=== PATIENT | male | born 1965 | race Caucasian/White ===

== ENCOUNTER 2017-08-20 19:30 | Emergency (ER) | payer OTHER ==
[2017-08-20 19:39] VITALS: BP 113/84; PULSE 80; RESP 20; TEMP 98.8; O2SAT 97
[2017-08-20] MEDS ORDERED: CLON.5 PO (20:37)
[2017-08-20] MEDS ORDERED: OMEP20TA93 PO (20:37)
[2017-08-20] MEDS ORDERED: LISI-515 PO (20:37)
[2017-08-20] MEDS ORDERED: BLOOD PRESSURE MED PO (20:37)
--- NOTE | 2017-08-20 20:37 | PD ---
HPI Chief Complaint: Psychiatric Symptoms Time Seen by Provider: 20:22 Travel History International Travel<30 days: No Contact w/Intl Traveler<30days: No Traveled to known affect area: No History of Present Illness HPI 52-year-old white male presents to emergency department by EMS for evaluation of alcohol abuse. The patient states that he is concerned that he's killing himself with alcohol. He was just treated 3 weeks ago for acute renal failure and was sent to the [facility] detox facility. He was in the facility for one week and was discharged home. [place] 4 days later. He's been consuming a large amount of vodka. He states he does not want to hurt himself or hurt anyone. He is tired of being an alcoholic. He denies any drugs. No tobacco. He denies any toxic ingestions. He states that is been merely laying in bed drinking large amounts of alcohol. Patient admits to being depressed. History of depression, hypertension, GERD and most recently the acute kidney injury. [facility] Past Medical History Narrative Medical Depression, chronic alcohol abuse, hypertension, GERD, history of acute renal failure Tetanus Vaccination: < 5 Years Past Surgical History Surgical History: No Previous Surgery Social History Alcohol Use: Yes Tobacco Use: No Substance Use: No Allergies-Medications (Allergen,Severity, Reaction): Coded Allergies: [facility] Dust (Verified Allergy, Unknown, 08/20/17) Reported Meds & Prescriptions Reported Meds & Active Scripts Active Reported [Blood Pressure Med] 1 Mg PO DAILY Klonopin (Clonazepam) 0.5 Mg Tab 0.5 Mg PO BID Omeprazole 20 Mg Tab 20 Mg PO DAILY Lisinopril 20 Mg Tab 20 Mg PO DAILY Review of Systems General / Constitutional: No: Fever, Chills Eyes: No: Visual changes HENT: No: Headaches, Sore Throat Cardiovascular: No: Chest Pain or Discomfort, Palpitations Respiratory: No: Cough, Shortness of Breath Gastrointestinal: No: Nausea, Vomiting, Abdominal Pain Genitourinary: No: Dysuria Musculoskeletal: No: Pain Skin: No Rash Neurologic: No: Weakness Psychiatric: Positive: Depression, Mood Disorder, Substance Abuse, No: Suicidal Ideations, Disorder of Thought, Homicidal Ideation Endocrine: No: Polydipsia Hematologic/Lymphatic: No: Easy Bruising Physical Exam Narrative GENERAL: Well-nourished, well-developed patient. Patient smells of EtOH and appears intoxicated. SKIN: Warm and dry. HEAD: Normocephalic and atraumatic. EYES: No scleral icterus. No injection or drainage. ENT: No nasal drainage noted. Mucous membranes pink. Airway patent. NECK: Supple, trachea midline. Moves head freely without obvious discomfort. CARDIOVASCULAR: Regular rate and rhythm without murmurs, gallops, or rubs. RESPIRATORY: Breath sounds equal bilaterally. No accessory muscle use. GASTROINTESTINAL: Abdomen soft, non-tender, nondistended. EXTREMITIES: No cyanosis or edema. BACK: Nontender without obvious deformity. No CVA tenderness. NEURO: Patient is alert and oriented. no sensorimotor deficits. Nonfocal. Normal speech. PSYCH: No delusions. No auditory or visual hallucinations. Data Data Last Documented VS Vital Signs Date Time Temp Pulse Resp B/P (MAP) Pulse Ox O2 Delivery O2 Flow Rate FiO2 08/20/17 20:28 86 17 08/20/17 19:39 98.8 113/84 (94) 97 Room Air Orders Orders Complete Blood Count With Diff (08/20/17 20:31) Comprehensive Metabolic Panel (08/20/17 20:31) Iv Access Insert/Monitor (08/20/17 20:31) Psych Screen (08/20/17 20:31) Drug Screen, Random Urine (08/20/17 20:31) Alcohol (Ethanol) (08/20/17 20:31) Salicylates (Aspirin) (08/20/17 20:31) Tylenol (Acetaminophen) (08/20/17 20:31) Sodium Chlor 0.9% 1000 Ml Inj (Ns 1000 M (08/20/17 20:45) Labs Laboratory Tests Test 08/20/17 20:40 White Blood Count 8.1 TH/MM3 Red Blood Count 5.28 MIL/MM3 Hemoglobin 16.6 GM/DL Hematocrit 48.2 % Mean Corpuscular Volume 91.3 FL Mean Corpuscular Hemoglobin 31.4 PG Mean Corpuscular Hemoglobin Concent 34.5 % Red Cell Distribution Width 14.5 % Platelet Count 275 TH/MM3 Mean Platelet Volume 7.0 FL Neutrophils (%) (Auto) 74.7 % Lymphocytes (%) (Auto) 16.0 % Monocytes (%) (Auto) 8.2 % Eosinophils (%) (Auto) 0.4 % Basophils (%) (Auto) 0.7 % Neutrophils # (Auto) 6.1 TH/MM3 Lymphocytes # (Auto) 1.3 TH/MM3 Monocytes # (Auto) 0.7 TH/MM3 Eosinophils # (Auto) 0.0 TH/MM3 Basophils # (Auto) 0.1 TH/MM3 CBC Comment DIFF FINAL Differential Comment Blood Urea Nitrogen 15 MG/DL Creatinine 1.47 MG/DL Random Glucose 97 MG/DL Total Protein 8.6 GM/DL Albumin 4.1 GM/DL Calcium Level 8.6 MG/DL Alkaline Phosphatase 78 U/L Aspartate Amino Transf (AST/SGOT) 164 U/L Alanine Aminotransferase (ALT/SGPT) 176 U/L Total Bilirubin 1.2 MG/DL Sodium Level 140 MEQ/L Potassium Level 4.2 MEQ/L Chloride Level 104 MEQ/L Carbon Dioxide Level 24.6 MEQ/L Anion Gap 11 MEQ/L Estimat Glomerular Filtration Rate 50 ML/MIN Salicylates Level LESS THAN 1.7 MG/DL Acetaminophen Level LESS THAN 2.0 MCG/ML Ethyl Alcohol Level 273 MG/DL MDM Medical Decision Making Medical Screen Exam Complete: Yes Emergency Medical Condition: Yes Medical Record Reviewed: Yes Interpretation(s) Laboratory Tests Test 08/20/17 20:40 White Blood Count 8.1 TH/MM3 Red Blood Count 5.28 MIL/MM3 Hemoglobin 16.6 GM/DL Hematocrit 48.2 % Mean Corpuscular Volume 91.3 FL Mean Corpuscular Hemoglobin 31.4 PG Mean Corpuscular Hemoglobin Concent 34.5 % Red Cell Distribution Width 14.5 % Platelet Count 275 TH/MM3 Mean Platelet Volume 7.0 FL Neutrophils (%) (Auto) 74.7 % Lymphocytes (%) (Auto) 16.0 % Monocytes (%) (Auto) 8.2 % Eosinophils (%) (Auto) 0.4 % Basophils (%) (Auto) 0.7 % Neutrophils # (Auto) 6.1 TH/MM3 Lymphocytes # (Auto) 1.3 TH/MM3 Monocytes # (Auto) 0.7 TH/MM3 Eosinophils # (Auto) 0.0 TH/MM3 Basophils # (Auto) 0.1 TH/MM3 CBC Comment DIFF FINAL Differential Comment Blood Urea Nitrogen 15 MG/DL Creatinine 1.47 MG/DL Random Glucose 97 MG/DL Total Protein 8.6 GM/DL Albumin 4.1 GM/DL Calcium Level 8.6 MG/DL Alkaline Phosphatase 78 U/L Aspartate Amino Transf (AST/SGOT) 164 U/L Alanine Aminotransferase (ALT/SGPT) 176 U/L Total Bilirubin 1.2 MG/DL Sodium Level 140 MEQ/L Potassium Level 4.2 MEQ/L Chloride Level 104 MEQ/L Carbon Dioxide Level 24.6 MEQ/L Anion Gap 11 MEQ/L Estimat Glomerular Filtration Rate 50 ML/MIN Salicylates Level LESS THAN 1.7 MG/DL Acetaminophen Level LESS THAN 2.0 MCG/ML Ethyl Alcohol Level 273 MG/DL Differential Diagnosis Differential diagnoses: Alcohol intoxication, substance abuse, electrolyte abnormality, malingering Narrative Course IV access is obtained. Routine laboratory tests sent for analysis. Patient given liter bolus of normal saline. Condition: Stable Prudencio Oviedo Aug 20, 2017 20:37
[2017-08-20] MEDS ORDERED: SODIUM CHLOR 0.9% 1000 ML INJ 1,000 ML IV ONE (20:45)
[2017-08-20 21:16] LABS: AUTOMATED NEUTROPHIL # 6.1 TH/MM3 (1.8-7.7); BASOPHIL # 0.1 TH/MM3 (0-0.2); BASOPHIL % 0.7 % (0.0-2.0); EOSINOPHIL % 0.4 % (0.0-4.0); HEMATOCRIT 48.2 % (39.0-51.0); HEMO FLAGS DIFF FINAL; LYMPHOCYTE # 1.3 TH/MM3 (1.0-4.8); MEAN CELL VOLUME 91.3 FL (80.0-100.0); MEAN CORPUSCULAR HEMOGLOBIN 31.4 PG (27.0-34.0); MEAN CORPUSCULAR HGB CONC 34.5 % (32.0-36.0); MONO % 8.2 % (0.0-8.0); NEUT % 74.7 % (16.0-70.0); PLATELET COUNT 275 TH/MM3 (150-450); RED BLOOD COUNT 5.28 MIL/MM3 (4.50-5.90); RED CELL DISTRIBUTION WIDTH 14.5 % (11.6-17.2); WHITE BLOOD COUNT 8.1 TH/MM3 (4.0-11.0)
[2017-08-20 21:42] LABS: ALT (GPT) 176 U/L (12-78); ANION GAP 11 MEQ/L (5-15); AST (GOT) 164 U/L (15-37); BICARBONATE 24.6 MEQ/L (21.0-32.0); BLOOD UREA NITROGEN 15 MG/DL (7-18); CHLORIDE 104 MEQ/L (98-107); GLOMERULAR FILTRATION RATE 50 ML/MIN (>89); POTASSIUM 4.2 MEQ/L (3.5-5.1); SODIUM (NA) 140 MEQ/L (136-145)
[2017-08-20 21:48] LABS: ALCOHOL 273 MG/DL (0-5); ALKALINE PHOSPHATASE 78 U/L (45-117); TOTAL BILIRUBIN ADULT 1.2 MG/DL (0.2-1.0)
[2017-08-20 21:49] LABS: ACETAMINOPHEN LESS THAN 2.0 MCG/ML (10.0-30.0)
[2017-08-21] MEDS: chlordiazePOXIDE 25 MG CAP PO PRN ×2 (00:11→05:24)
[2017-08-21 02:10] VITALS: BP 129/76; PULSE 75; RESP 18; TEMP 98.6; O2SAT 95
[2017-08-21 06:20] VITALS: BP 131/83; PULSE 80; RESP 16; TEMP 99.1; O2SAT 95
[2017-08-21] MEDS ORDERED: LORazepam 2 MG/ML VIAL IV PUSH PRN ×4 (08:00)
[2017-08-21] MEDS ORDERED: LORazepam 1 MG TAB PO PRN (08:00)
[2017-08-21] MEDS ORDERED: ONDANSETRON ODT 4 MG TAB PO ONE (08:00)
[2017-08-21] MEDS ORDERED: FLUMAZENIL 0.5 MG/5 ML VIAL IV PUSH PRN (08:00)
[2017-08-21] MEDS: LORazepam 2 MG TAB PO PRN ×3 (08:32→16:26)
[2017-08-21 10:30] VITALS: BP 122/79; PULSE 81; RESP 18; TEMP 99.4; O2SAT 95
[2017-08-21 11:55] VITALS: BP 141/87; PULSE 88; RESP 16; TEMP 99.8; O2SAT 94
[2017-08-21] MEDS ORDERED: chlordiazePOXIDE 25 MG CAP PO PRN (12:00)
[2017-08-21] MEDS: LORazepam 2 MG/ML VIAL IM PRN ×2 (12:05→12:23)
--- NOTE | 2017-08-21 12:31 | PD ---
History of Present Illness Chief Complaint: Psychiatric Symptoms Time Seen by Provider: 11:30 Travel History International Travel<30 Days: No Contact w/Intl Traveler<30days: No Known affected area: No Legal Status Legal Status: Voluntary History of Present Illness: History of Present Illness HPI 52-year-old white male presents to the emergency department by EMS for evaluation of alcohol abuse. He reported that he is concerned that his excessive and continued use of alcohol is going to lead to his . Patient has been treated at [facility] detox facility 3 weeks ago and relapsed 4 days after his discharge from there. Patient also reports that he's had multiple inpatient detox admissions over the last several years. At this time the patient is on CIWA protocol due to withdrawal symptoms. He denies any psychiatric symptomatology. There is no psychosis, no ale or hypomania. There is no suicidal or homicidal ideation. Telephone call to his daughter , Antionette at [phone].. Her boyfriend's number is [phone]. She will not be available after tomorrow morning since [place] be [place] sea [place] cruise and asks if needed she can be contacted at that number. She has agreed to come and pick him up and transport him to [place] for possible admission to detox unit there. PFSH Past Medical History Depression: Yes Genitourinary: Yes (ACUTE RENAL FAILURE) Medical other: Yes (DAILY ETOH) Tetanus Vaccination: < 5 Years Past Surgical History Surgical History: No Previous Surgery Psychiatric History Psychiatric History Hx Psychiatric Treatment: HX: ANXIETY History of Inpatient Treatment: No Guns or firearms in home: No Social History male. Lives by himself. Hx Alcohol Use: Yes Hx Tobacco Use: No Hx Substance Use: Yes Substance Use Type: Alcohol Hx of Substance Use Treatment: Yes Family Psychiatric History Negative Allergies-Medications (Allergen,Severity, Reaction): Coded Allergies: [facility] Dust (Verified Allergy, Unknown, 08/20/17) Reported Meds & Prescriptions Reported Meds & Active Scripts Active Reported [Blood Pressure Med] 1 Mg PO DAILY Klonopin (Clonazepam) 0.5 Mg Tab 0.5 Mg PO BID Omeprazole 20 Mg Tab 20 Mg PO DAILY Lisinopril 20 Mg Tab 20 Mg PO DAILY Mental Status Examination Appearance: Disheveled Consciousness: Alert Orientation: x4 Motor Activity: Other (unsteady) Speech: Unremarkable Language: Adequate Fund of Knowledge: Adequate Attention and Concentration: Adequate Memory: Unremarkable Mood: Appropriate Affect: Appropriate Thought Process & Associations: Intact, Logical, Goal directed Thought Content: Appropriate Hallucination Type: None Delusion Type: None Suicidal Ideation: No Suicidal Plan: No Suicidal Intention: No Homicidal Ideation: No Homicidal Plan: No Homicidal Intention: No Insight: Fair Judgment: Adequate MDM Medical Decision Making Medical Record Reviewed: Yes Assessment/Plan 52-year-old male with history of alcohol dependence who presents to the ED wanting to receive detoxification from alcohol. The patient does not present any psychiatric symptomatology. He is not psychotic, not manic, not depressed. The patient with no suicidal or homicidal ideation. Patient was monitored here in [facility] and was placed under CIWA protocol. Once patient was stable for discharge his daughter made arrangements to transfer him to [facility] detox. At this time the patient is psychiatrically clear for discharge. Orders Orders Complete Blood Count With Diff (08/20/17 20:31) Comprehensive Metabolic Panel (08/20/17 20:31) Iv Access Insert/Monitor (08/20/17 20:31) Psych Screen (08/20/17 20:31) Drug Screen, Random Urine (08/20/17 20:31) Alcohol (Ethanol) (08/20/17 20:31) Salicylates (Aspirin) (08/20/17 20:31) Tylenol (Acetaminophen) (08/20/17 20:31) Sodium Chlor 0.9% 1000 Ml Inj (Ns 1000 M (08/20/17 20:45) Chlordiazepoxide (Librium) (08/21/17 00:15) Diet Regular Basic (08/21/17 Breakfast) Alcohol Withdrawal Asmt-wa Q4HX18 (08/21/17 07:56) Flumazenil Inj (Romazicon Inj) (08/21/17 08:00) Lorazepam (Ativan) (08/21/17 08:00) Lorazepam Inj (Ativan Inj) (08/21/17 08:00) Lorazepam (Ativan) (08/21/17 08:00) Lorazepam Inj (Ativan Inj) (08/21/17 08:00) Lorazepam Inj (Ativan Inj) (08/21/17 08:00) Lorazepam Inj (Ativan Inj) (08/21/17 08:00) Ondansetron Odt (Zofran Odt) (08/21/17 08:00) Diet Regular Basic (08/21/17 Lunch) Chlordiazepoxide (Librium) (08/21/17 12:00) Lorazepam Inj (Ativan Inj) (08/21/17 12:15) Results Vital Signs Date Time Temp Pulse Resp B/P (MAP) Pulse Ox O2 Delivery O2 Flow Rate FiO2 08/21/17 11:55 99.8 88 16 141/87 (105) 94 Room Air 08/21/17 10:30 99.4 81 18 122/79 (93) 95 Room Air 08/21/17 06:20 99.1 80 16 131/83 (99) 95 Room Air 08/21/17 02:10 98.6 75 18 129/76 (93) 95 Room Air 08/20/17 20:28 86 17 08/20/17 19:39 98.8 80 20 113/84 (94) 97 Room Air Laboratory Tests Test 08/20/17 20:40 08/20/17 23:59 White Blood Count 8.1 Red Blood Count 5.28 Hemoglobin 16.6 Hematocrit 48.2 Mean Corpuscular Volume 91.3 Mean Corpuscular Hemoglobin 31.4 Mean Corpuscular Hemoglobin Concent 34.5 Red Cell Distribution Width 14.5 Platelet Count 275 Mean Platelet Volume 7.0 Neutrophils (%) (Auto) 74.7 Lymphocytes (%) (Auto) 16.0 Monocytes (%) (Auto) 8.2 Eosinophils (%) (Auto) 0.4 Basophils (%) (Auto) 0.7 Neutrophils # (Auto) 6.1 Lymphocytes # (Auto) 1.3 Monocytes # (Auto) 0.7 Eosinophils # (Auto) 0.0 Basophils # (Auto) 0.1 CBC Comment DIFF FINAL Differential Comment Blood Urea Nitrogen 15 Creatinine 1.47 Random Glucose 97 Total Protein 8.6 Albumin 4.1 Calcium Level 8.6 Alkaline Phosphatase 78 Aspartate Amino Transf (AST/SGOT) 164 Alanine Aminotransferase (ALT/SGPT) 176 Total Bilirubin 1.2 Sodium Level 140 Potassium Level 4.2 Chloride Level 104 Carbon Dioxide Level 24.6 Anion Gap 11 Estimat Glomerular Filtration Rate 50 Salicylates Level LESS THAN 1.7 Acetaminophen Level LESS THAN 2.0 Ethyl Alcohol Level 273 Urine Opiates Screen NEG Urine Barbiturates Screen NEG Urine Amphetamines Screen NEG Urine Benzodiazepines Screen POS Urine Cocaine Screen NEG Urine Cannabinoids Screen NEG Diagnosis Primary Impression: Alcohol dependence with acute alcoholic intoxication Psychiatrically Cleared: Yes Prescriptions Chlordiazepoxide HCl (Chlordiazepoxide HCl) 25 Mg Capsule 1 CAP PO Q6HR for Agitation, #12 Prov: She Miller 08/21/17 Disposition: 01 DISCHARGE HOME Condition: Stable Problem Qualifiers Primary Impression: Alcohol dependence with acute alcoholic intoxication Qualified Codes: F10.220 - Alcohol dependence with intoxication, uncomplicated Jana Pierson [facility] Aug 21, 2017 12:31
[2017-08-21 14:00] VITALS: BP 134/85; PULSE 68; RESP 18
[2017-08-21 14:57] VITALS: TEMP 99.4
[2017-08-21] MEDS ORDERED: CHLO25CA9 PO (16:53)
--- NOTE | 2017-08-21 16:57 | PD ---
Physical Exam Date Seen by Provider: Aug 21, 2017 Time Seen by Provider: 16:53 Narrative 52-year-old ill previously medically cleared with EtOH intoxication requesting detox, has been evaluated by psychiatric services and felt to be stable for discharge and no inpatient detox facilities are available at this time. Patient is requesting to leave. He is voluntary. Patient will be discharged with prescription for Librium 25 mg every 6 hours #12. Patient is to follow-up with Kanu Briceño. Data Data Last Documented VS Vital Signs Date Time Temp Pulse Resp B/P (MAP) Pulse Ox O2 Delivery O2 Flow Rate FiO2 08/21/17 14:57 99.4 08/21/17 14:00 68 18 Room Air 08/21/17 11:55 94 Orders Orders Complete Blood Count With Diff (08/20/17 20:31) Comprehensive Metabolic Panel (08/20/17 20:31) Iv Access Insert/Monitor (08/20/17 20:31) Psych Screen (08/20/17 20:31) Drug Screen, Random Urine (08/20/17 20:31) Alcohol (Ethanol) (08/20/17 20:31) Salicylates (Aspirin) (08/20/17 20:31) Tylenol (Acetaminophen) (08/20/17 20:31) Sodium Chlor 0.9% 1000 Ml Inj (Ns 1000 M (08/20/17 20:45) Chlordiazepoxide (Librium) (08/21/17 00:15) Diet Regular Basic (08/21/17 Breakfast) Alcohol Withdrawal Asmt-Ciwa Q4HX18 (08/21/17 07:56) Flumazenil Inj (Romazicon Inj) (08/21/17 08:00) Lorazepam (Ativan) (08/21/17 08:00) Lorazepam Inj (Ativan Inj) (08/21/17 08:00) Lorazepam (Ativan) (08/21/17 08:00) Lorazepam Inj (Ativan Inj) (08/21/17 08:00) Lorazepam Inj (Ativan Inj) (08/21/17 08:00) Lorazepam Inj (Ativan Inj) (08/21/17 08:00) Ondansetron Odt (Zofran Odt) (08/21/17 08:00) Diet Regular Basic (08/21/17 Lunch) Chlordiazepoxide (Librium) (08/21/17 12:00) Lorazepam Inj (Ativan Inj) (08/21/17 12:15) Diet Regular Basic (08/21/17 Dinner) Labs Laboratory Tests Test 08/20/17 20:40 08/20/17 23:59 White Blood Count 8.1 TH/MM3 Red Blood Count 5.28 MIL/MM3 Hemoglobin 16.6 GM/DL Hematocrit 48.2 % Mean Corpuscular Volume 91.3 FL Mean Corpuscular Hemoglobin 31.4 PG Mean Corpuscular Hemoglobin Concent 34.5 % Red Cell Distribution Width 14.5 % Platelet Count 275 TH/MM3 Mean Platelet Volume 7.0 FL Neutrophils (%) (Auto) 74.7 % Lymphocytes (%) (Auto) 16.0 % Monocytes (%) (Auto) 8.2 % Eosinophils (%) (Auto) 0.4 % Basophils (%) (Auto) 0.7 % Neutrophils # (Auto) 6.1 TH/MM3 Lymphocytes # (Auto) 1.3 TH/MM3 Monocytes # (Auto) 0.7 TH/MM3 Eosinophils # (Auto) 0.0 TH/MM3 Basophils # (Auto) 0.1 TH/MM3 CBC Comment DIFF FINAL Differential Comment Blood Urea Nitrogen 15 MG/DL Creatinine 1.47 MG/DL Random Glucose 97 MG/DL Total Protein 8.6 GM/DL Albumin 4.1 GM/DL Calcium Level 8.6 MG/DL Alkaline Phosphatase 78 U/L Aspartate Amino Transf (AST/SGOT) 164 U/L Alanine Aminotransferase (ALT/SGPT) 176 U/L Total Bilirubin 1.2 MG/DL Sodium Level 140 MEQ/L Potassium Level 4.2 MEQ/L Chloride Level 104 MEQ/L Carbon Dioxide Level 24.6 MEQ/L Anion Gap 11 MEQ/L Estimat Glomerular Filtration Rate 50 ML/MIN Salicylates Level LESS THAN 1.7 MG/DL Acetaminophen Level LESS THAN 2.0 MCG/ML Ethyl Alcohol Level 273 MG/DL Urine Opiates Screen NEG Urine Barbiturates Screen NEG Urine Amphetamines Screen NEG Urine Benzodiazepines Screen POS Urine Cocaine Screen NEG Urine Cannabinoids Screen NEG MDM Medical Record Reviewed: Yes Supervised Visit with [facility]: Yes Narrative Course 52-year-old ill previously medically cleared with EtOH intoxication requesting detox, has been evaluated by psychiatric services and felt to be stable for discharge and no inpatient detox facilities are available at this time. Patient is requesting to leave. He is voluntary. Patient will be discharged with prescription for Librium 25 mg every 6 hours #12. Patient is to follow-up with Kanu Briceño. Diagnosis Primary Impression: ETOH abuse [facility] Patient Instructions: General Instructions Med/Other Pt SpecificInfo: Prescription(s) given Scripts Chlordiazepoxide HCl (Chlordiazepoxide HCl) 25 Mg Capsule 1 CAP PO Q6HR for Agitation, #12 Prov: She Miller DO 08/21/17 Disposition: 01 DISCHARGE HOME Condition: Stable Gen Brown Aug 21, 2017 16:57
== END 2017-08-21 18:12 | disposition home or self-care (01) ==
LOC: NEPD 19:30 → NEPJ 08-21 18:12
DX: F10.220 Alcohol dependence with intoxication, uncomplicated (principal); K21.9 Gastro-esophageal reflux disease without esophagitis; I10 Essential (primary) hypertension; Y90.8 Blood alcohol level of 240 mg/100 ml or more; Z79.899 Other long term (current) drug therapy
CPT/HCPCS: 80053; 80307; 85025; 96372; 99285; J2060; J7030

== ENCOUNTER 2017-09-04 21:54 | Inpatient (IN) | payer OTHER ==
[~2017-09-04] VITALS: Ht 180.3 cm; Wt 91.0 kg
[~2017-09-04 21:54] MED LIST: BLOOD PRESSURE MED PO; CHLO25CA9 PO; CLON.5 PO; LISI-515 PO; OMEP20TA93 PO
[2017-09-04 22:00] VITALS: BP 142/70; PULSE 122; RESP 20; TEMP 98; O2SAT 98
[2017-09-04 22:05] VITALS: BP 148/72; PULSE 110; RESP 20; TEMP 98.7; O2SAT 98
[2017-09-04] MEDS ORDERED: ONDANSETRON HCL 4 MG/2 ML VIAL IV ONE (22:30)
[2017-09-04] MEDS ORDERED: SODIUM CHLOR 0.9% 1000 ML INJ 1,000 ML IV ONE (23:15)
[2017-09-04] MEDS ORDERED: LORazepam 2 MG/ML VIAL IV PUSH ONE (23:15)
[2017-09-04] MEDS ORDERED: PROMETHAZINE INJ 25 MG/ML VIAL IM ONE (23:15)
[2017-09-04 23:46] LABS: AUTOMATED NEUTROPHIL # 9.3 TH/MM3 (1.8-7.7); BASOPHIL % 0.2 % (0.0-2.0); HEMATOCRIT 41.1 % (39.0-51.0); HEMOGLOBIN 14.1 GM/DL (13.0-17.0); LYMPH % 3.4 % (9.0-44.0); LYMPHOCYTE # 0.3 TH/MM3 (1.0-4.8); MEAN CELL VOLUME 92.8 FL (80.0-100.0); MEAN CORPUSCULAR HEMOGLOBIN 31.7 PG (27.0-34.0); MEAN CORPUSCULAR HGB CONC 34.2 % (32.0-36.0); MONO % 5.7 % (0.0-8.0); MONOCYTE # 0.6 TH/MM3 (0-0.9); NEUT % 90.7 % (16.0-70.0); PLATELET COUNT 86 TH/MM3 (150-450); RED BLOOD COUNT 4.43 MIL/MM3 (4.50-5.90); RED CELL DISTRIBUTION WIDTH 15.1 % (11.6-17.2); WHITE BLOOD COUNT 10.3 TH/MM3 (4.0-11.0)
[2017-09-05] VITALS (9 sets, daily range): BP systolic 116–138; BP diastolic 67–87; PULSE 72–110; RESP 17–20; TEMP 96.7–100.1; O2SAT 92–98
[2017-09-05] MEDS ORDERED: RANITIDINE HCL SYRUP 150 MG/10 ML UDC PO ONE
[2017-09-05 00:15] LABS: BANDS 9 % (0-6); LYMPHOCYTES 4 % (9-44); MONOCYTES 7 % (0-8); NEUTROPHIL # MANUAL DIFF 9.2 TH/MM3 (1.8-7.7); POLYS (SEG NEUTROPHILS) 80 % (16-70)
[2017-09-05 00:18] LABS: ALBUMIN 3.9 GM/DL (3.4-5.0); ALT (GPT) 181 U/L (12-78); AST (GOT) 205 U/L (15-37); BLOOD UREA NITROGEN 39 MG/DL (7-18); CALCIUM 8.4 MG/DL (8.5-10.1); CHLORIDE 93 MEQ/L (98-107); CREATININE 1.77 MG/DL (0.60-1.30); GLOMERULAR FILTRATION RATE 41 ML/MIN (>89); GLUCOSE,RANDOM 157 MG/DL (74-106); LIPASE 472 U/L (73-393); SODIUM (NA) 133 MEQ/L (136-145)
[2017-09-05 00:20] LABS: ALKALINE PHOSPHATASE 73 U/L (45-117); TOTAL BILIRUBIN ADULT 1.3 MG/DL (0.2-1.0); TOTAL PROTEIN 7.8 GM/DL (6.4-8.2)
[2017-09-05] MEDS ORDERED: ONDANSETRON HCL 4 MG/2 ML VIAL IV ONE (01:00)
[2017-09-05] MEDS ORDERED: METOCLOPRAMIDE HCL 10 MG/2 ML VIAL IV PUSH ONE (01:00)
[2017-09-05] MEDS ORDERED: SODIUM CHLOR 0.9% 1000 ML INJ 1,000 ML IV SCH (01:00)
--- NOTE | 2017-09-05 01:15 | PD ---
HPI Chief Complaint: Alcohol/Drug Intoxication Time Seen by Provider: 22:55 Travel History International Travel<30 days: No Contact w/Intl Traveler<30days: No Traveled to known affect area: No History of Present Illness HPI This is a 52-year-old male who has a history of alcoholism who presents to the emergency department with 1 day of nausea vomiting and abdominal pain. He says his abdomen hurts, in the middle, constant, worse with eating, unable to drink anything, severe. He denies any associated fevers or chills. He feels like he is going into withdrawals. He's never had vomiting like this before. PFS Past Medical History Medical History: Denies Significant Hx Depression: Yes Diminished Hearing: No Genitourinary: Yes (ACUTE RENAL FAILURE) Immunizations Current: Yes Tetanus Vaccination: Unknown Influenza Vaccination: No Social History Alcohol Use: Yes Tobacco Use: No Substance Use: Yes Allergies-Medications (Allergen,Severity, Reaction): Coded Allergies: [place] [facility] Dust (Verified Allergy, Unknown, 09/04/17) Reported Meds & Prescriptions Reported Meds & Active Scripts Active Chlordiazepoxide HCl 25 Mg Capsule 1 Cap PO Q6HR Reported [Blood Pressure Med] 1 Mg PO DAILY Klonopin (Clonazepam) 0.5 Mg Tab 0.5 Mg PO BID Omeprazole 20 Mg Tab 20 Mg PO DAILY Lisinopril 20 Mg Tab 20 Mg PO DAILY Review of Systems Except as stated in HPI: all other systems reviewed are Neg Physical Exam Narrative GENERAL: Actively vomiting SKIN: Focused skin assessment warm and dry. HEAD: Atraumatic. Normocephalic. EYES: Pupils equal and round. No injection or drainage. ENT: Dry mucous membranes. NECK: Trachea midline. CARDIOVASCULAR: Regular rate and rhythm. No murmur appreciated. RESPIRATORY: Clear to auscultation. Breath sounds equal bilaterally. GASTROINTESTINAL: Abdomen soft, tender to palpation in the epigastrium with no rebound or guarding. MUSCULOSKELETAL: No obvious deformities. NEUROLOGICAL: Awake and alert. No obvious cranial nerve deficits. Moving all extremities. PSYCHIATRIC: Appropriate mood and affect; insight and judgment normal. Data Data Last Documented VS Vital Signs Date Time Temp Pulse Resp B/P (MAP) Pulse Ox O2 Delivery O2 Flow Rate FiO2 09/05/17 02:00 96 20 129/86 (100) 98 Room Air 09/05/17 00:00 98.0 Orders Orders Ondansetron Inj (Zofran Inj) (09/04/17 22:30) Complete Blood Count With Diff (09/04/17 23:03) Comprehensive Metabolic Panel (09/04/17 23:03) ^ Insert Iv (09/04/17 23:03) Lipase (09/04/17 23:03) Lorazepam Inj (Ativan Inj) (09/04/17 23:15) Sodium Chlor 0.9% 1000 Ml Inj (Ns 1000 M (09/04/17 23:15) Promethazine Inj (Phenergan Inj) (09/04/17 23:15) Ranitidine Liq (Zantac Liq) (09/05/17 00:00) Ct Abd/Pel W/O Iv Contrast (09/05/17 ) Sodium Chlor 0.9% 1000 Ml Inj (Ns 1000 M (09/05/17 01:00) Ondansetron Inj (Zofran Inj) (09/05/17 01:00) Blood Gas Venous (Vbg) (09/05/17 00:54) Metoclopramide Inj (Reglan Inj) (09/05/17 01:00) Thiamine Inj (Thiamine Inj) (09/05/17 01:30) Admit Order (Ed Use Only) (09/05/17 02:01) Alcohol Withdrawal Asmt-Ciwa ONCE (09/05/17 02:01) Flumazenil Inj (Romazicon Inj) (09/05/17 02:15) Lorazepam (Ativan) (09/05/17 02:15) Lorazepam Inj (Ativan Inj) (09/05/17 02:15) Lorazepam (Ativan) (09/05/17 02:15) Lorazepam Inj (Ativan Inj) (09/05/17 02:15) Lorazepam Inj (Ativan Inj) (09/05/17 02:15) Lorazepam Inj (Ativan Inj) (09/05/17 02:15) Vital Signs (Adult) Q4H (09/05/17 02:01) Diet Npo (09/05/17 Breakfast) Activity Oob With Assistance (09/05/17 02:01) Labs Laboratory Tests Test 09/04/17 23:00 09/05/17 01:00 White Blood Count 10.3 TH/MM3 Red Blood Count 4.43 MIL/MM3 Hemoglobin 14.1 GM/DL Hematocrit 41.1 % Mean Corpuscular Volume 92.8 FL Mean Corpuscular Hemoglobin 31.7 PG Mean Corpuscular Hemoglobin Concent 34.2 % Red Cell Distribution Width 15.1 % Platelet Count 86 TH/MM3 Mean Platelet Volume 9.0 FL Neutrophils (%) (Auto) 90.7 % Lymphocytes (%) (Auto) 3.4 % Monocytes (%) (Auto) 5.7 % Eosinophils (%) (Auto) 0.0 % Basophils (%) (Auto) 0.2 % Neutrophils # (Auto) 9.3 TH/MM3 Lymphocytes # (Auto) 0.3 TH/MM3 Monocytes # (Auto) 0.6 TH/MM3 Eosinophils # (Auto) 0.0 TH/MM3 Basophils # (Auto) 0.0 TH/MM3 CBC Comment AUTO DIFF Differential Total Cells Counted 100 Neutrophils % (Manual) 80 % Band Neutrophils % 9 % Lymphocytes % 4 % Monocytes % 7 % Neutrophils # (Manual) 9.2 TH/MM3 Differential Comment FINAL DIFF MANUAL Platelet Estimate LOW Platelet Morphology Comment NORMAL Red Cell Morphology Comment NORMAL Blood Urea Nitrogen 39 MG/DL Creatinine 1.77 MG/DL Random Glucose 157 MG/DL Total Protein 7.8 GM/DL Albumin 3.9 GM/DL Calcium Level 8.4 MG/DL Alkaline Phosphatase 73 U/L Aspartate Amino Transf (AST/SGOT) 205 U/L Alanine Aminotransferase (ALT/SGPT) 181 U/L Total Bilirubin 1.3 MG/DL Sodium Level 133 MEQ/L Potassium Level 3.9 MEQ/L Chloride Level 93 MEQ/L Carbon Dioxide Level 23.0 MEQ/L Anion Gap 17 MEQ/L Estimat Glomerular Filtration Rate 41 ML/MIN Lipase 472 U/L Blood Gas Puncture Site RN LINE Blood Gas Patient Temperature 98.6 Venous Blood pH 7.47 Venous Blood Partial Pressure CO2 32 mmHg Venous Blood Partial Pressure O2 51 mmHg Venous Blood HCO3 23 mmol/L Venous Blood Oxygen Saturation 82 % Venous Blood Oxygen Content 14.8 Vol % Venous Blood Base Excess 0.2 mmol/L Oxygen Delivery Device ROOM AIR Blood Gas Inspired Oxygen 21 % [facility] Medical Decision Making Medical Screen Exam Complete: Yes Emergency Medical Condition: Yes Interpretation(s) Afebrile, tachycardic, hypertensive No leukocytosis 9% bandemia Hyponatremia Anion gap is 17 Renal insufficiency acute on chronic Transaminitis likely secondary to alcohol Lipase is 470 over limit of normal Differential Diagnosis Gastritis, pancreatitis, alcoholic ketoacidosis, dehydration, cholecystitis Narrative Course This is a 52-year-old male who has a history of alcoholism who presents to the emergency department with persistent vomiting. In the emergency department he was placed on a monitor and an IV was established. He is found to be an early alcohol withdrawal was given 2 mg of IV Ativan. He was given 8 mg total IV Zofran, 25 of Phenergan and 10 mg of Reglan and he continued to have vomiting. He was given IV hydration. Labs demonstrate a 9% bandemia in the absence of fever or source of infection which I suspect is a stress response. Electrolytes demonstrate some renal insufficiency and transaminitis likely secondary to the patient's underlying alcoholic liver disease. Given the patient's persistent vomiting I think it's reasonable to place him in observation for IV hydration and continued antiemetics for likely alcoholic gastritis. He was placed on CIWA protocol. Diagnosis Primary Impression: Alcoholic gastritis Qualified Codes: K29.20 - Alcoholic gastritis without bleeding Admitting Information Admitting Physician Requests: Observation Rosalinda Sanz MD Sep 05, 2017 01:15
[2017-09-05] MEDS ORDERED: THIAMINE INJ 100 MG in SODIUM CHLORIDE 0.9% INJ 100 ML IV ONE (01:30)
--- NOTE | 2017-09-05 01:38 | RADRPT ---
EXAM DATE/TIME: 09/05/2017 01:06 [place] COMPARISON: No previous studies available for comparison. INDICATIONS : Diffuse abdominal pain with vomiting, alcohol withdrawal symptoms. ORAL CONTRAST: No oral contrast ingested. RADIATION DOSE: 9.96 CTDIvol (mGy) MEDICAL HISTORY : Acute renal failure. Substance abuse. SURGICAL HISTORY : None. ENCOUNTER: Initial ACUITY: 1 day PAIN SCALE: 5/10 LOCATION: Bilateral abdomen TECHNIQUE: Volumetric scanning of the abdomen and pelvis was performed. Using automated exposure control and adjustment of the mA and/or kV according to patient size, radiation dose was kept as low as reasonably achievable to obtain optimal diagnostic quality images. DICOM format image data is av ailable electronically for review and comparison. FINDINGS: CT Abdomen: The spleen, pancreas, kidneys, adrenals are unremarkable. There is no evidence for any ap preciable pathological adenopathy, free fluid, or bowel obstruction. The liver is significantly diff usely fatty without focal lesions or technique and there are areas of focal sparing. CT pelvis: There is no evidence for mass, abscess formation, or any significant adenopathy within the pelvis. The prostate gland is inhomogeneous and measures 3.1 x 4.4 cm in AP and transverse diameters and nonspecific. CONCLUSION: Fatty liver. Claudio Peña MD on September 05, 2017 at 1:33 Board Certified Radiologist. This report was verified electronically.
[2017-09-05] MEDS ORDERED: LORazepam 1 MG TAB PO PRN (02:15)
[2017-09-05] MEDS ORDERED: FLUMAZENIL 0.5 MG/5 ML VIAL IV PUSH PRN (02:15)
[2017-09-05] MEDS ORDERED: LORazepam 2 MG TAB PO PRN (02:15)
[2017-09-05] MEDS ORDERED: LORazepam 2 MG/ML VIAL IV PUSH PRN ×4 (02:15)
--- NOTE | 2017-09-05 08:54 | EKG ---
Date Performed: 09/04/2017 Time Performed: 22:04:07 PTAGE: 52 years EKG: Sinus rhythm WITH FIRST DEGREE AV BLOCK BORDERLINE LEFT AXIS DEVIATION ABNORMAL ECG NO PREVIOUS TRACING DOCTOR: Solo Weiner Interpretating Date/Time 09/05/2017 08:53:16
[2017-09-05] MEDS ORDERED: ONDANSETRON HCL 4 MG/2 ML VIAL IV PUSH ONE (13:30)
[2017-09-05] MEDS: PANTOPRAZOLE SODIUM 40 MG VIAL IV PUSH SCH (13:56)
[2017-09-05] MEDS: SODIUM CHLOR 0.9% 1000 ML INJ 1,000 ML IV SCH (13:56)
[2017-09-05] MEDS: METOCLOPRAMIDE HCL 10 MG/2 ML VIAL IV PUSH SCH ×2 (13:56→22:00)
[2017-09-05] MEDS: THIAMINE INJ 100 MG in SODIUM CHLORIDE 0.9% INJ 100 ML IV SCH (14:16)
[2017-09-05] MEDS: MULTIVITAMIN INJ 10 ML, FOLIC ACID INJ 1 MG in SODIUM CHLORID 0.9% 500 ML INJ 500 ML IV SCH (16:14)
--- NOTE | 2017-09-05 16:24 | HHI.HP ---
HPI Service CP Hospitalists Primary Care Physician Non-Staff Admission Diagnosis etoh w/d intractable n/v Travel History International Travel<30 Days: No Contact w/Intl Traveler <30 Da: No Traveled to Known Affected Are: No History of Present Illness Pt with long hx of etoh abuse and multiple failed etoh rehab programs. Pt says he has used etoh from around 18 yrs old. Says he started drinking heavy after his divorce about 5 yrs ago. Reports admission to multiple etoh rehab programs and DT's in past with w/d sz's.Says most recently was at "[facility] etoh program" and just moved out to his own place in August. During that program pt says he relapsed twice over 6months. Reports heavy vodka drinking daily over past 18days with vodka 750ml/day. Says he began developing epigastric pain and inability to hold down the etoh or any other liquid or food about 24hrs ago. Now says he is feeling w/d symptoms already. Given iv ativan x 2 before my arrival which helped. Also lying on bed now dry heaving. Review of Systems Other etoh abuse n/v epigastric pain no bloody emesis or stool. Past Family Social History Past Medical History etoh abuse hx DT's and w/d seizure in past "2012" htn depression Reported Medications Klonopin (Clonazepam) 0.5 Mg Tab 0.5 Mg PO BID Omeprazole 20 Mg Tab 20 Mg PO DAILY Lisinopril 20 Mg Tab 20 Mg PO DAILY lexapro Allergies: Coded Allergies: [place] [facility] Dust (Verified Allergy, Unknown, 09/04/17) Family History mother with etoh abuse\\ Social History denies tob 750ml vodka per day binge for past 18days. prior to that long hx etoh abuse has been in multiple etoh rehab and was just release from etoh rehab at beginning of August Physical Exam Vital Signs mild tremors dry heaving looks ill heart regular lung cta abd mild epigastric tenderness. no rebound. bs ext no edema Vital Signs Date Time Temp Pulse Resp B/P (MAP) Pulse Ox O2 Delivery O2 Flow Rate FiO2 09/05/17 15:48 98.0 78 18 119/74 (89) 95 09/05/17 11:56 98.2 78 18 132/84 (100) 94 09/05/17 08:15 98.1 84 18 133/86 (102) 94 09/05/17 04:22 98.7 92 17 131/80 (97) 95 09/05/17 02:00 96 20 129/86 (100) 98 Room Air 09/05/17 00:00 98.0 90 20 126/81 (96) 98 Room Air 09/04/17 22:05 98.7 110 20 148/72 (97) 98 09/04/17 22:00 98.0 122 20 142/70 (94) 98 Laboratory Laboratory Tests Test 09/04/17 23:00 09/05/17 01:00 White Blood Count 10.3 Red Blood Count 4.43 Hemoglobin 14.1 Hematocrit 41.1 Mean Corpuscular Volume 92.8 Mean Corpuscular Hemoglobin 31.7 Mean Corpuscular Hemoglobin Concent 34.2 Red Cell Distribution Width 15.1 Platelet Count 86 Mean Platelet Volume 9.0 Neutrophils (%) (Auto) 90.7 Lymphocytes (%) (Auto) 3.4 Monocytes (%) (Auto) 5.7 Eosinophils (%) (Auto) 0.0 Basophils (%) (Auto) 0.2 Neutrophils # (Auto) 9.3 Lymphocytes # (Auto) 0.3 Monocytes # (Auto) 0.6 Eosinophils # (Auto) 0.0 Basophils # (Auto) 0.0 CBC Comment AUTO DIFF Differential Total Cells Counted 100 Neutrophils % (Manual) 80 Band Neutrophils % 9 Lymphocytes % 4 Monocytes % 7 Neutrophils # (Manual) 9.2 Differential Comment FINAL DIFF MANUAL Platelet Estimate LOW Platelet Morphology Comment NORMAL Red Cell Morphology Comment NORMAL Blood Urea Nitrogen 39 Creatinine 1.77 Random Glucose 157 Total Protein 7.8 Albumin 3.9 Calcium Level 8.4 Alkaline Phosphatase 73 Aspartate Amino Transf (AST/SGOT) 205 Alanine Aminotransferase (ALT/SGPT) 181 Total Bilirubin 1.3 Sodium Level 133 Potassium Level 3.9 Chloride Level 93 Carbon Dioxide Level 23.0 Anion Gap 17 Estimat Glomerular Filtration Rate 41 Lipase 472 Blood Gas Puncture Site RN LINE Blood Gas Patient Temperature 98.6 Venous Blood pH 7.47 Venous Blood Partial Pressure CO2 32 Venous Blood Partial Pressure O2 51 Venous Blood HCO3 23 Venous Blood Oxygen Saturation 82 Venous Blood Oxygen Content 14.8 Venous Blood Base Excess 0.2 Oxygen Delivery Device ROOM AIR Blood Gas Inspired Oxygen 21 Result Diagram: 09/04/17 23009/04/172299 Caprini VTE Risk Assessment Caprini Risk Assessment Model Point Value = 1 Point Value = 2 Point Value = 3 Point Value = 5 Age 41-60 Minor surgery BMI > 25 kg/m2 Swollen legs Varicose veins or History of unexplained or recurrent spontaneous Oral contraceptives or hormone replacement Sepsis (< 1 month) Serious lung disease, including pneumonia (< 1 month) Abnormal pulmonary function Acute myocardial infarction Congestive heart failure (< 1 month) History of inflammatory bowel disease Medical patient at bed rest Age 61-74 Arthroscopic surgery Major open surgery (> 45 min) Laparoscopic surgery (> 45 min) Malignancy Confined to bed (> 72 hours) Immobilizing plaster cast Central venous access Age >= 75 History of VTE Family history of VTE Factor V Leiden Prothrombin [id number] Lupus anticoagulant Anticardiolipin antibodies Elevated serum homocysteine Heparin-induced thrombocytopenia Other congenital or acquired thrombophilia Stroke (< 1 month) Elective arthroplasty Hip, pelvis, or leg fracture Acute spinal cord injury (< 1 month) Prophylaxis Regimen Total Risk Factor Score Risk Level Prophylaxis Regimen 0-1 Low Early ambulation 2 Moderate Order ONE of the following: *Sequential Compression Device (SCD) *Heparin 5000 units SQ BID 3-4 Higher Order ONE of the following medications: *Heparin 5000 units SQ TID *Enoxaparin/Lovenox 40 mg SQ daily (WT < 150 kg, CrCl > 30 mL/min) *Enoxaparin/Lovenox 30 mg SQ daily (WT < 150 kg, CrCl > 10-29 mL/min) *Enoxaparin/Lovenox 30 mg SQ BID (WT < 150 kg, CrCl > 30 mL/min) AND/OR *Sequential Compression Device (SCD) 5 or more Highest Order ONE of the following medications: *Heparin 5000 units SQ TID (Preferred with Epidurals) *Enoxaparin/Lovenox 40 mg SQ daily (WT < 150 kg, CrCl > 30 mL/min) *Enoxaparin/Lovenox 30 mg SQ daily (WT < 150 kg, CrCl > 10-29 mL/min) *Enoxaparin/Lovenox 30 mg SQ BID (WT < 150 kg, CrCl > 30 mL/min) AND *Sequential Compression Device (SCD) Assessment and Plan Problem List: (1) Alcohol abuse ICD Codes: F10.10 - Alcohol abuse, uncomplicated Status: Acute Plan: 1. etoh abuse and multiple failed attempts at etoh rehab intractable n/v anibal and dehydration etoh w/d signs and sx's elevated LFT and thrombocytopenia due to etoh abuse plan aggressive ivf iv zofran and reglan . iv ppi today clear liquid as tolerated on CIWA protocol with ativan sz precautions dvt prophylaxis resume home po meds as tolerated will recommend f/u with cp mental health at d/c (2) Dehydration ICD Codes: E86.0 - Dehydration Status: Acute (3) ANIBAL (acute kidney injury) ICD Codes: N17.9 - Acute kidney failure, unspecified Status: Acute (4) Intractable vomiting with nausea ICD Codes: R11.2 - Nausea with vomiting, unspecified Status: Acute (5) HTN (hypertension) ICD Codes: I10 - Essential (primary) hypertension Status: Chronic (6) Thrombocytopenia ICD Codes: D69.6 - Thrombocytopenia, unspecified Status: Chronic Physician Certification 2 Midnight Certification Type: Admission for Inpatient Services Order for Inpatient Services 3The services are ordered in accordance with Medicare regulations or non- Medicare payer requirements, as applicable. In the case of services not specified as inpatient-only, they are appropriately provided as inpatient services in accordance with the 2-midnight benchmark. Estimated LOS (days): 3 3 days is the estimated time the patient will need to remain in the hospital, assuming treatment plan goals are met and no additional complications. Post-Hospital Plan: Home Wiliam Hernández MD Sep 05, 2017 16:24
[2017-09-05] MEDS ORDERED: cloNIDine HCL 0.1 MG TAB PO PRN (18:15)
[2017-09-06] MEDS: PANTOPRAZOLE SODIUM 40 MG VIAL IV PUSH SCH ×2 (01:28→14:32)
[2017-09-06 03:58] VITALS: BP 119/76; PULSE 71; RESP 18; TEMP 99; O2SAT 95
[2017-09-06] MEDS: SODIUM CHLOR 0.9% 1000 ML INJ 1,000 ML IV SCH ×2 (05:30→14:41)
[2017-09-06] MEDS: METOCLOPRAMIDE HCL 10 MG/2 ML VIAL IV PUSH SCH ×3 (06:09→20:57)
[2017-09-06 06:44] LABS: BICARBONATE 27.7 MEQ/L (21.0-32.0); CALCIUM 8.2 MG/DL (8.5-10.1); CREATININE 1.23 MG/DL (0.60-1.30); DIRECT BILIRUBIN ADULT 0.2 MG/DL (0.0-0.2); INDIRECT BILIRUBIN 1.1 MG/DL (0.0-0.8); MAGNESIUM 1.8 MG/DL (1.5-2.5); TOTAL BILIRUBIN ADULT 1.3 MG/DL (0.2-1.0); TOTAL PROTEIN 6.8 GM/DL (6.4-8.2)
[2017-09-06 08:00] VITALS: BP 133/82; PULSE 76; RESP 17; TEMP 99.4; O2SAT 97
[2017-09-06] MEDS: ESCITALOPRAM OXALATE 10 MG TAB PO SCH (09:25)
[2017-09-06] MEDS: THIAMINE INJ 100 MG in SODIUM CHLORIDE 0.9% INJ 100 ML IV SCH (09:25)
--- NOTE | 2017-09-06 11:27 | HHI.PR ---
Subjective Remarks feels better. no vomiting bill clears. Objective Vitals nad no labored breathing cooperative Vital Signs Date Time Temp Pulse Resp B/P (MAP) Pulse Ox O2 Delivery O2 Flow Rate FiO2 09/06/17 08:00 99.4 76 17 133/82 (99) 97 09/06/17 07:50 Room Air 09/06/17 03:58 99.0 71 18 119/76 (90) 95 09/05/17 23:49 99.6 102 18 116/72 (87) 92 09/05/17 19:26 100.1 72 18 138/87 (104) 97 09/05/17 16:34 99.5 75 18 134/86 (102) 98 09/05/17 15:48 98.0 78 18 119/74 (89) 95 09/05/17 11:56 98.2 78 18 132/84 (100) 94 Result Diagram: 09/04/17 2300 09/06/17 0533 A/P Problem List: (1) Alcohol abuse ICD Codes: F10.10 - Alcohol abuse, uncomplicated Status: Acute Plan: 1. etoh abuse and multiple failed attempts at etoh rehab intractable n/v anibal and dehydration etoh w/d signs and sx's elevated LFT and thrombocytopenia due to etoh abuse plan aggressive ivf iv zofran and reglan . iv ppi advance diet to full liquid on CIWA protocol with ativan sz precautions dvt prophylaxis resume home po meds as tolerated will recommend f/u with cp mental health at d/c If able to advance diet and no vomiting...then d/c plans for tomorrow. (2) Dehydration ICD Codes: E86.0 - Dehydration Status: Acute (3) ANIBAL (acute kidney injury) ICD Codes: N17.9 - Acute kidney failure, unspecified Status: Acute (4) Intractable vomiting with nausea ICD Codes: R11.2 - Nausea with vomiting, unspecified Status: Acute (5) HTN (hypertension) ICD Codes: I10 - Essential (primary) hypertension Status: Chronic (6) Thrombocytopenia ICD Codes: D69.6 - Thrombocytopenia, unspecified Status: Chronic Wiliam Hernández MD Sep 06, 2017 11:27
[2017-09-06 12:00] VITALS: BP 144/98; PULSE 61; RESP 17; TEMP 98.1; O2SAT 95
[2017-09-06] MEDS ORDERED: POTASSIUM PHOSPHATE MONOBASIC 500 MG TAB PO ONE (12:00)
[2017-09-06] MEDS: MULTIVITAMIN INJ 10 ML, FOLIC ACID INJ 1 MG in SODIUM CHLORID 0.9% 500 ML INJ 500 ML IV SCH (14:31)
[2017-09-06 16:00] VITALS: BP 130/87; PULSE 58; RESP 17; TEMP 97.7; O2SAT 96
[2017-09-06 20:27] VITALS: BP 137/87; PULSE 59; RESP 19; TEMP 97.8; O2SAT 96
[2017-09-06 23:15] VITALS: BP 159/94; PULSE 79; RESP 18; TEMP 98.7; O2SAT 96
[2017-09-06] MEDS: ONDANSETRON HCL 4 MG/2 ML VIAL IV PUSH PRN (23:55)
[2017-09-07] VITALS (7 sets, daily range): BP systolic 95–159; BP diastolic 80–99; PULSE 60–83; RESP 17–18; TEMP 97.2–98.8; O2SAT 94–99
[2017-09-07] MEDS: PANTOPRAZOLE SODIUM 40 MG VIAL IV PUSH SCH ×2 (02:10→13:30)
[2017-09-07] MEDS: METOCLOPRAMIDE HCL 10 MG/2 ML VIAL IV PUSH SCH ×3 (05:38→22:27)
[2017-09-07 07:35] LABS: ALBUMIN 2.7 GM/DL (3.4-5.0); BICARBONATE 28.8 MEQ/L (21.0-32.0); CREATININE 1.2 MG/DL (0.60-1.30); DIRECT BILIRUBIN ADULT 0.4 MG/DL (0.0-0.2); INDIRECT BILIRUBIN 0.5 MG/DL (0.0-0.8); TOTAL BILIRUBIN ADULT 0.9 MG/DL (0.2-1.0)
[2017-09-07] MEDS: THIAMINE INJ 100 MG in SODIUM CHLORIDE 0.9% INJ 100 ML IV SCH (08:51)
[2017-09-07] MEDS: ESCITALOPRAM OXALATE 10 MG TAB PO SCH (08:51)
[2017-09-07] MEDS: ONDANSETRON HCL 4 MG/2 ML VIAL IV PUSH PRN ×2 (09:21→18:25)
--- NOTE | 2017-09-07 10:43 | HHI.PR ---
Subjective Remarks pt had "rough night" alot of w/d shaking and vomited. had some ativan and zofran. he is agreeable to rehab at [facility]...in fact very happy/excited/thankful Objective Vitals oriented heart reg lung cta abd mild epigastric tenderness. bs/no rebound ext no edema Vital Signs Date Time Temp Pulse Resp B/P (MAP) Pulse Ox O2 Delivery O2 Flow Rate FiO2 09/07/17 08:00 97.8 62 17 146/88 (107) 94 09/07/17 04:15 97.2 65 18 130/90 (103) 97 09/07/17 01:00 130/80 (97) 09/06/17 23:15 98.7 79 18 159/94 (115) 96 09/06/17 20:27 97.8 59 19 137/87 (104) 96 09/06/17 16:00 97.7 58 17 130/87 (101) 96 09/06/17 12:00 98.1 61 17 144/98 (113) 95 09/07/17 09/07/17 09/08/17 15:00 23:00 07:00 Intake Total 480 ml Balance 480 ml Intake Oral 480 ml # Voids 3 # Bowel Movements 2 Result Diagram: 09/04/17 2300 09/07/17 0655 A/P Problem List: (1) Alcohol abuse ICD Codes: F10.10 - Alcohol abuse, uncomplicated Status: Acute Plan: 1. etoh abuse and multiple failed attempts at etoh rehab intractable n/v.. he probably also has a mild pancreatitis. anibal and dehydration etoh w/d signs and sx's elevated LFT and thrombocytopenia due to etoh abuse plan aggressive ivf iv zofran and reglan . iv ppi cont full liquid and advance if tolerated will need to schedule some librium for DT's He also takes chronic klonopin bid resume his bp medication. sz precautions dvt prophylaxis discussed with [facility]cp..They have arranged admission to etoh rehab at [facility] when medically stable. They will pick him up and take him...unfortunately not medically stable today...maybe tomorrow. (2) Dehydration ICD Codes: E86.0 - Dehydration Status: Acute (3) ANIBAL (acute kidney injury) ICD Codes: N17.9 - Acute kidney failure, unspecified Status: Acute (4) Intractable vomiting with nausea ICD Codes: R11.2 - Nausea with vomiting, unspecified Status: Acute (5) HTN (hypertension) ICD Codes: I10 - Essential (primary) hypertension Status: Chronic (6) Thrombocytopenia ICD Codes: D69.6 - Thrombocytopenia, unspecified Status: Chronic Wiliam Hernández MD Sep 07, 2017 10:42
[2017-09-07] MEDS: clonazePAM 0.5 MG TAB PO SCH ×2 (11:42→20:09)
[2017-09-07] MEDS: chlordiazePOXIDE 25 MG CAP PO SCH ×2 (13:29→22:02)
[2017-09-07] MEDS: MULTIVITAMIN INJ 10 ML, FOLIC ACID INJ 1 MG in SODIUM CHLORID 0.9% 500 ML INJ 500 ML IV SCH (15:50)
[2017-09-07] MEDS: SODIUM CHLOR 0.9% 1000 ML INJ 1,000 ML IV SCH ×2 (15:51→21:30)
[2017-09-07] MEDS: LISINOPRIL 10 MG TAB PO SCH (20:09)
[2017-09-08 00:25] VITALS: BP 155/92; PULSE 61; RESP 18; TEMP 98.7; O2SAT 99
[2017-09-08] MEDS: PANTOPRAZOLE SODIUM 40 MG VIAL IV PUSH SCH ×2 (00:58→13:14)
[2017-09-08 04:04] VITALS: BP 149/97; PULSE 59; RESP 18; TEMP 98; O2SAT 98
[2017-09-08] MEDS: SODIUM CHLOR 0.9% 1000 ML INJ 1,000 ML IV SCH ×2 (05:30→13:14)
[2017-09-08] MEDS: chlordiazePOXIDE 25 MG CAP PO SCH ×2 (07:42→13:44)
[2017-09-08] MEDS: clonazePAM 0.5 MG TAB PO SCH (07:43)
[2017-09-08] MEDS: METOCLOPRAMIDE HCL 10 MG/2 ML VIAL IV PUSH SCH ×2 (07:43→13:14)
[2017-09-08 08:00] VITALS: BP 143/86; PULSE 57; RESP 18; TEMP 98.1; O2SAT 96
[2017-09-08] MEDS: THIAMINE INJ 100 MG in SODIUM CHLORIDE 0.9% INJ 100 ML IV SCH (09:00)
[2017-09-08] MEDS: LISINOPRIL 10 MG TAB PO SCH (09:21)
[2017-09-08] MEDS: ESCITALOPRAM OXALATE 10 MG TAB PO SCH (09:21)
[2017-09-08] MEDS ORDERED: CHLO25CA9 PO (10:43)
[2017-09-08] MEDS ORDERED: OMEP20TA93 PO (10:43)
[2017-09-08] MEDS ORDERED: ZOFR4TAB3 SL (10:43)
--- NOTE | 2017-09-08 10:45 | HHI.DCPOC ---
Discharge Care Plan Diagnosis: (1) Intractable vomiting with nausea (2) ANIBAL (acute kidney injury) (3) Alcoholic gastritis (4) Dehydration (5) Thrombocytopenia (6) Alcohol abuse (7) HTN (hypertension) Goals to Promote Your Health * To prevent worsening of your condition and complications * To maintain your health at the optimal level Directions to Meet Your Goals Take your medications as prescribed Follow your dietary instruction Follow activity as directed Keep your appointments as scheduled Take your immunizations and boosters as scheduled If your symptoms worsen call your PCP, if no PCP go to Urgent Care Center or Emergency Room Smoking is Dangerous to Your Health. Avoid second hand smoke Call the 24-hour hour crisis hotline for domestic abuse at Wiliam Hernández MD Sep 08, 2017 10:44
--- NOTE | 2017-09-08 10:49 | HHI.DS ---
Discharge Summary Admission Date Sep 05, 2017 at 02:04 Discharge Date: Sep 08, 2017 Admitting Diagnosis etoh w/d intractable n/v (1) Alcohol abuse Diagnosis: Principal ICD Codes: F10.10 - Alcohol abuse, uncomplicated Status: Acute (2) Dehydration Diagnosis: Principal ICD Codes: E86.0 - Dehydration Status: Acute (3) ANIBAL (acute kidney injury) Diagnosis: Principal ICD Codes: N17.9 - Acute kidney failure, unspecified Status: Acute (4) Intractable vomiting with nausea Diagnosis: Principal ICD Codes: R11.2 - Nausea with vomiting, unspecified Status: Acute (5) HTN (hypertension) Diagnosis: Secondary ICD Codes: I10 - Essential (primary) hypertension Status: Chronic (6) Thrombocytopenia Diagnosis: Secondary ICD Codes: D69.6 - Thrombocytopenia, unspecified Status: Chronic Brief History Pt with long hx of etoh abuse and multiple failed etoh rehab programs. Pt says he has used etoh from around 18 yrs old. Says he started drinking heavy after his divorce about 5 yrs ago. Reports admission to multiple etoh rehab programs and DT's in past with w/d sz's.Says most recently was at "[facility] etoh program" and just moved out to his own place in August. During that program pt says he relapsed twice over 6months. Reports heavy vodka drinking daily over past 18days with vodka 750ml/day. Says he began developing epigastric pain and inability to hold down the etoh or any other liquid or food about 24hrs ago. Now says he is feeling w/d symptoms already. Given iv ativan x 2 before my arrival which helped. Also lying on bed now dry heaving. CBC/BMP: 09/04/17 2300 09/07/17 0655 Significant Findings Laboratory Tests Test 09/06/17 05:33 09/07/17 06:55 09/08/17 08:00 Albumin 3.0 GM/DL (3.4-5.0) 2.7 GM/DL (3.4-5.0) Calcium Level 8.2 MG/DL (8.5-10.1) 8.0 MG/DL (8.5-10.1) Phosphorus Level 2.0 MG/DL (2.5-4.9) Aspartate Amino Transf (AST/SGOT) 90 U/L (15-37) 74 U/L (15-37) Alanine Aminotransferase (ALT/SGPT) 93 U/L (12-78) 85 U/L (12-78) Total Bilirubin 1.3 MG/DL (0.2-1.0) Estimat Glomerular Filtration Rate 62 ML/MIN (>89) 64 ML/MIN (>89) Indirect Bilirubin 1.1 MG/DL (0.0-0.8) Lipase 567 U/L (73-393) Total Protein 6.0 GM/DL (6.4-8.2) Direct Bilirubin 0.4 MG/DL (0.0-0.2) Hospital Course (1) Alcohol abuse 1. etoh abuse and multiple failed attempts at etoh rehab intractable n/v.. he probably also has a mild pancreatitis. anibal and dehydration etoh w/d signs and sx's elevated LFT and thrombocytopenia due to etoh abuse plan aggressive ivf given iv zofran and reglan with iv ppi administered pt progressed his diet and tolerating some solids but advised to stick mostly with liquids for a few days taper librium for dt's He also takes chronic klonopin bid resume his bp medication. sz precautions dvt prophylaxis discussed with fhcp..They have arranged admission to etoh rehab at [facility] when medically stable. They will pick him up and take him... DC TODAY. (2) Dehydration ICD Codes: E86.0 - Dehydration Status: Acute (3) ANIBAL (acute kidney injury) ICD Codes: N17.9 - Acute kidney failure, unspecified Status: Acute (4) Intractable vomiting with nausea ICD Codes: R11.2 - Nausea with vomiting, unspecified Status: Acute (5) HTN (hypertension) ICD Codes: I10 - Essential (primary) hypertension Status: Chronic (6) Thrombocytopenia ICD Codes: D69.6 - Thrombocytopenia, unspecified Status: Chronic Pt Condition on Discharge: Stable Discharge Disposition: Disc to Psych Care Fac Discharge Instructions DIET: Follow Instructions for: Soft Diet Additional Diet Instructions: drink extra liquids and progress solid diet slowly Activities you can perform: Regular-No Restrictions Follow up Referrals: Drug/Alcohol Rehab - Today [facility] New Medications: Ondansetron Odt (Zofran Odt) 4 Mg Tab 4 MG SL Q6HR PRN for Nausea/Vomiting, #30 TAB 0 Refills Chlordiazepoxide HCl (Chlordiazepoxide HCl) 25 Mg Capsule 25 MG PO DIRECTED for detox, #10 TAB 25mg po bid x 3 days then 25mg po daily x 4 days Changed Medications: Omeprazole (Omeprazole) 20 Mg Tab 20 MG PO BID for gastritis, #60 TAB 0 Refills (Changed from: DAILY; 30) Continued Medications: Clonazepam (Klonopin) 0.5 Mg Tab 0.5 MG PO BID, #60 TAB 0 Refills Lisinopril (Lisinopril) 20 Mg Tab 20 MG PO DAILY, #30 TAB 0 Refills Discontinued Medications: Chlordiazepoxide HCl (Chlordiazepoxide HCl) 25 Mg Capsule 1 CAP PO Q6HR for Agitation, #12 [Blood Pressure Med] () 1 MG PO DAILY Wiliam Hernández MD Sep 08, 2017 10:49
[2017-09-08 12:00] VITALS: BP 151/97; PULSE 61; RESP 18; TEMP 96.7; O2SAT 100
[2017-09-08] MEDS: MULTIVITAMIN INJ 10 ML, FOLIC ACID INJ 1 MG in SODIUM CHLORID 0.9% 500 ML INJ 500 ML IV SCH (13:44)
== END 2017-09-08 14:56 | disposition short-term general hospital (02) | DRG 896 ==
LOC: NEPC 21:54 → NEDA 09-05 02:04 → NEPFCDU 09-05 03:05 → N06A 09-05 17:22
PROVIDERS: ADMIT Hospitalist; ATTEND Hospitalist
DX: F10.10 Alcohol abuse, uncomplicated (principal); K85.90 Acute pancreatitis without necrosis or infection, unspecified; N17.9 Acute kidney failure, unspecified; D69.59 Other secondary thrombocytopenia; E86.0 Dehydration; R79.89 Other specified abnormal findings of blood chemistry; I10 Essential (primary) hypertension; K29.20 Alcoholic gastritis without bleeding
CPT/HCPCS: 74176; 80048; 80053; 80076; 82805; 83690; 83735; 84100; 85007; 85027; 93005; 96361; 96365; 96372; 96375; C9113; J2060; J2405; J2550; J2765; J3411; J7030; J7040

== ENCOUNTER 2017-11-18 08:52 | Emergency (ER) | payer OTHER ==
[~2017-11-18] VITALS: Ht 177.8 cm; Wt 93.0 kg
[~2017-11-18 08:52] MED LIST changes: -BLOOD PRESSURE MED PO; +ZOFR4TAB3 SL
[2017-11-18 09:00] VITALS: BP 159/97; PULSE 84; RESP 20; TEMP 97.4; O2SAT 99
[2017-11-18] MEDS ORDERED: SODIUM CHLOR 0.9% 1000 ML INJ 1,000 ML IV SCH (10:41)
[2017-11-18] MEDS ORDERED: ONDANSETRON HCL 4 MG/2 ML VIAL IVP ONE (10:45)
[2017-11-18] MEDS ORDERED: FAMOTIDINE 20 MG/2 ML VIAL IV PUSH ONE (10:45)
[2017-11-18] MEDS ORDERED: SODIUM CHLORIDE 0.9% FLUSH 10 ML FLUSH IV FLUSH PRN (10:45)
[2017-11-18] MEDS ORDERED: MORPHINE SULFATE 4 MG/ML INJ IV PUSH ONE (10:45)
--- NOTE | 2017-11-18 10:46 | PD ---
HPI Chief Complaint: Abdominal Pain Time Seen by Provider: 10:34 Travel History International Travel<30 days: No Contact w/Intl Traveler<30days: No Traveled to known affect area: No History of Present Illness HPI The patient is a 52-year-old male who presents emergency department via EMS for epigastric abdominal pain after 7 day alcohol binge. The patient has a history of alcohol abuse, was staying in a sober house for the last 7 months. The patient moved out of the sober house 7 days ago, is been staying in a hotel and drinking approximately a fifth of alcohol daily. The patient has been through alcohol rehabilitation several times in the past with intermittent bouts of sobriety. He currently complains of nausea, dry heaves, and epigastric abdominal discomfort. He does have a history of acute renal failure secondary to dehydration from previous alcohol abuse. The patient's last admission was 2016 per his report. He denies any chest pain or shortness of breath. Symptoms are moderate, exacerbated by recent alcohol abuse, there are no current alleviating factors. PFSH Past Medical History Asthma: No Depression: Yes Heart Rhythm Problems: No Cardiovascular Problems: No High Cholesterol: No Chest Pain: No Congestive Heart Failure: No COPD: No Diminished Hearing: No Genitourinary: Yes (ACUTE RENAL FAILURE) Musculoskeletal: No Neurologic: No Respiratory: No Immunizations Current: Yes Social History Alcohol Use: Yes Tobacco Use: No Substance Use: Yes (ALCOHOL EVERYDAY) Allergies-Medications (Allergen,Severity, Reaction): Coded Allergies: [place] Dust (Verified Allergy, Unknown, 09/04/17) Reported Meds & Prescriptions Reported Meds & Active Scripts Active Chlordiazepoxide HCl 25 Mg Capsule 25 Mg PO DIRECTED 25mg po bid x 3 days then 25mg po daily x 4 days Omeprazole 20 Mg Tab 20 Mg PO BID Reported Escitalopram (Escitalopram Oxalate) 20 Mg Tab 20 Mg PO DAILY Klonopin (Clonazepam) 0.5 Mg Tab 0.5 Mg PO BID Lisinopril 20 Mg Tab 20 Mg PO DAILY Review of Systems Except as stated in HPI: all other systems reviewed are Neg General / Constitutional: No: Fever HENT: No: Lightheadedness Cardiovascular: No: Chest Pain or Discomfort Respiratory: No: Shortness of Breath Gastrointestinal: Positive: Nausea, Vomiting, Abdominal Pain, No: Diarrhea Genitourinary: No: Dysuria Musculoskeletal: Positive: Weakness Psychiatric: Positive: Substance Abuse (alcohol abuse) Physical Exam Narrative GENERAL: Awake, alert, pleasant 52-year-old male who appears his stated age and is in no acute respiratory distress. SKIN: Focused skin assessment warm/dry. HEAD: Atraumatic. Normocephalic. EYES: Pupils equal and round. No scleral icterus. No injection or drainage. ENT: No nasal bleeding or discharge. Slightly dry mucous membranes. NECK: Trachea midline. No JVD. CARDIOVASCULAR: Regular rate and rhythm. No murmur appreciated. RESPIRATORY: No accessory muscle use. Clear to auscultation. Breath sounds equal bilaterally. GASTROINTESTINAL: Abdomen soft, mild epigastric tenderness. No guarding or rigidity. MUSCULOSKELETAL: No obvious deformities. No clubbing. No cyanosis. No edema. NEUROLOGICAL: Awake and alert. No obvious cranial nerve deficits. Motor grossly within normal limits. Normal speech. Nonfocal. PSYCHIATRIC: Flat affect. Insight and judgment appear normal. Data Data Last Documented VS Vital Signs Date Time Temp Pulse Resp B/P (MAP) Pulse Ox O2 Delivery O2 Flow Rate FiO2 11/18/17 11:02 85 17 99 Room Air 11/18/17 09:00 97.4 159/97 (117) Orders Orders Complete Blood Count With Diff (11/18/17 09:02) Comprehensive Metabolic Panel (11/18/17 09:02) Urinalysis - C+S If Indicated (11/18/17 09:02) Drug Screen, Random Urine (11/18/17 09:02) Alcohol (Ethanol) (11/18/17 09:02) Iv Access Insert/Monitor (11/18/17 10:41) Ecg Monitoring (11/18/17 10:41) Oximetry (11/18/17 10:41) Morphine Inj (Morphine Inj) (11/18/17 10:45) Ondansetron Inj (Zofran Inj) (11/18/17 10:45) Sodium Chlor 0.9% 1000 Ml Inj (Ns 1000 M (11/18/17 10:41) Sodium Chloride 0.9% Flush (Ns Flush) (11/18/17 10:45) Famotidine Inj (Pepcid Inj) (11/18/17 10:45) Lipase (11/18/17 09:35) Chlordiazepoxide (Librium) (11/18/17 12:45) Ed Discharge Order (11/18/17 14:30) Labs Laboratory Tests Test 11/18/17 09:35 11/18/17 09:40 White Blood Count 9.8 TH/MM3 Red Blood Count 5.36 MIL/MM3 Hemoglobin 16.7 GM/DL Hematocrit 48.3 % Mean Corpuscular Volume 90.2 FL Mean Corpuscular Hemoglobin 31.2 PG Mean Corpuscular Hemoglobin Concent 34.6 % Red Cell Distribution Width 13.5 % Platelet Count 190 TH/MM3 Mean Platelet Volume 7.5 FL Neutrophils (%) (Auto) 73.0 % Lymphocytes (%) (Auto) 15.9 % Monocytes (%) (Auto) 9.2 % Eosinophils (%) (Auto) 1.5 % Basophils (%) (Auto) 0.4 % Neutrophils # (Auto) 7.2 TH/MM3 Lymphocytes # (Auto) 1.6 TH/MM3 Monocytes # (Auto) 0.9 TH/MM3 Eosinophils # (Auto) 0.1 TH/MM3 Basophils # (Auto) 0.0 TH/MM3 CBC Comment DIFF FINAL Differential Comment Blood Urea Nitrogen 16 MG/DL Creatinine 1.30 MG/DL Random Glucose 79 MG/DL Total Protein 8.8 GM/DL Albumin 4.4 GM/DL Calcium Level 8.7 MG/DL Alkaline Phosphatase 73 U/L Aspartate Amino Transf (AST/SGOT) 49 U/L Alanine Aminotransferase (ALT/SGPT) 41 U/L Total Bilirubin 1.5 MG/DL Sodium Level 143 MEQ/L Potassium Level 4.1 MEQ/L Chloride Level 103 MEQ/L Carbon Dioxide Level 24.7 MEQ/L Anion Gap 15 MEQ/L Estimat Glomerular Filtration Rate 58 ML/MIN Lipase 370 U/L Ethyl Alcohol Level 273 MG/DL Urine Color YELLOW Urine Turbidity CLEAR Urine pH 6.0 Urine Specific [place] 1.015 Urine Protein 300 mg/dL Urine Glucose (UA) NEG mg/dL Urine Ketones 40 mg/dL Urine Occult Blood SMALL Urine Nitrite NEG Urine Bilirubin NEG Urine Urobilinogen LESS THAN 2.0 MG/DL Urine Leukocyte Esterase NEG Urine WBC 1 /hpf Urine Squamous Epithelial Cells 1 /hpf Urine Hyaline Casts 27 /lpf Urine Mucus FEW /lpf Microscopic Urinalysis Comment CULT NOT INDICATED Urine Opiates Screen NEG Urine Barbiturates Screen NEG Urine Amphetamines Screen NEG Urine Benzodiazepines Screen POS Urine Cocaine Screen NEG Urine Cannabinoids Screen NEG [facility] Medical Decision Making Medical Screen Exam Complete: Yes Emergency Medical Condition: Yes Medical Record Reviewed: Yes Interpretation(s) Laboratory Tests Test 11/18/17 09:35 11/18/17 09:40 White Blood Count 9.8 TH/MM3 Red Blood Count 5.36 MIL/MM3 Hemoglobin 16.7 GM/DL Hematocrit 48.3 % Mean Corpuscular Volume 90.2 FL Mean Corpuscular Hemoglobin 31.2 PG Mean Corpuscular Hemoglobin Concent 34.6 % Red Cell Distribution Width 13.5 % Platelet Count 190 TH/MM3 Mean Platelet Volume 7.5 FL Neutrophils (%) (Auto) 73.0 % Lymphocytes (%) (Auto) 15.9 % Monocytes (%) (Auto) 9.2 % Eosinophils (%) (Auto) 1.5 % Basophils (%) (Auto) 0.4 % Neutrophils # (Auto) 7.2 TH/MM3 Lymphocytes # (Auto) 1.6 TH/MM3 Monocytes # (Auto) 0.9 TH/MM3 Eosinophils # (Auto) 0.1 TH/MM3 Basophils # (Auto) 0.0 TH/MM3 CBC Comment DIFF FINAL Differential Comment Blood Urea Nitrogen 16 MG/DL Creatinine 1.30 MG/DL Random Glucose 79 MG/DL Total Protein 8.8 GM/DL Albumin 4.4 GM/DL Calcium Level 8.7 MG/DL Alkaline Phosphatase 73 U/L Aspartate Amino Transf (AST/SGOT) 49 U/L Alanine Aminotransferase (ALT/SGPT) 41 U/L Total Bilirubin 1.5 MG/DL Sodium Level 143 MEQ/L Potassium Level 4.1 MEQ/L Chloride Level 103 MEQ/L Carbon Dioxide Level 24.7 MEQ/L Anion Gap 15 MEQ/L Estimat Glomerular Filtration Rate 58 ML/MIN Lipase 370 U/L Ethyl Alcohol Level 273 MG/DL Urine Color YELLOW Urine Turbidity CLEAR Urine pH 6.0 Urine Specific [place] 1.015 Urine Protein 300 mg/dL Urine Glucose (UA) NEG mg/dL Urine Ketones 40 mg/dL Urine Occult Blood SMALL Urine Nitrite NEG Urine Bilirubin NEG Urine Urobilinogen LESS THAN 2.0 MG/DL Urine Leukocyte Esterase NEG Urine WBC 1 /hpf Urine Squamous Epithelial Cells 1 /hpf Urine Hyaline Casts 27 /lpf Urine Mucus FEW /lpf Microscopic Urinalysis Comment CULT NOT INDICATED Urine Opiates Screen NEG Urine Barbiturates Screen NEG Urine Amphetamines Screen NEG Urine Benzodiazepines Screen POS Urine Cocaine Screen NEG Urine Cannabinoids Screen NEG Differential Diagnosis Differential diagnosis includes alcohol abuse, alcohol intoxication, alcoholic gastritis, pancreatitis, biliary colic, cholecystitis, dehydration, acute renal failure, electrolyte abnormality. Narrative Course IV was established, labs are drawn and sent, and the patient was placed on cardiac telemetry monitoring and continuous pulse oximetry monitoring. The patient was administered morphine, Zofran, Pepcid, and IV fluids. Alcohol level was elevated at 273. Benzos are positive on tox screen, he has been taking Librium and Klonopin. Patient's BUN/creatinine are normal. AST is mildly elevated compared ALT, most likely secondary to alcoholic hepatitis. Lipase level is normal. Patient is reevaluated, is requesting rehabilitation. We discussed her [facility], he would prefer to go back to [facility]. The patient was provided a phone so he can make a phone call to see if they have availability. Patient will be provided a prescription of Librium, he is advised to go to a rehabilitation center or attend . The patient did call the [facility], the except the patient and sent a racing car driver to pick the patient up. The patient's ride arrived at 2:30 PM, he will be discharged to rehabilitation. Diagnosis Primary Impression: Alcohol dependence with acute alcoholic intoxication Qualified Codes: F10.229 - Alcohol dependence with intoxication, unspecified Patient Instructions: General Instructions Additional Instructions: Follow-up at rehabilitation. Medications as directed. Stop drinking alcohol. Med/Other Pt SpecificInfo: Prescription(s) given Scripts Chlordiazepoxide HCl (Chlordiazepoxide HCl) 25 Mg Capsule 25 MG PO DIRECTED for detox, #10 TAB 25mg po bid x 3 days then 25mg po daily x 4 days Prov: Clark Arnold MD 11/18/17 Disposition: 01 DISCHARGE HOME (patient will be discharged to rehabilitation to [facility] [place].) Condition: Stable Clark Arnold MD Nov 18, 2017 10:46
[2017-11-18 10:48] LABS: BILIRUBIN, URINE NEG (NEG); BLOOD, URINE SMALL (NEG); GLUCOSE,URINE NEG (NEG); HYALINE CAST, URINE 27 /lpf (RARE); KETONE, URINE 40 mg/dL (NEG); MUCUS URINE FEW /lpf (OCC); NITRITE,URINE NEG (NEG); SQUAMOUS EPITHELIAL CELL URINE 1 /hpf (0-5); URINE COLOR YELLOW (YELLW/STRAW); URINE LEUKOCYTE ESTERASE NEG (NEG)
[2017-11-18] MEDS ORDERED: ESCI20TA PO (10:59)
[2017-11-18 11:01] LABS: AUTOMATED NEUTROPHIL # 7.2 TH/MM3 (1.8-7.7); BASOPHIL % 0.4 % (0.0-2.0); EOSINOPHIL # 0.1 TH/MM3 (0-0.4); EOSINOPHIL % 1.5 % (0.0-4.0); HEMATOCRIT 48.3 % (39.0-51.0); HEMOGLOBIN 16.7 GM/DL (13.0-17.0); LYMPH % 15.9 % (9.0-44.0); LYMPHOCYTE # 1.6 TH/MM3 (1.0-4.8); MEAN CELL VOLUME 90.2 FL (80.0-100.0); MEAN CORPUSCULAR HEMOGLOBIN 31.2 PG (27.0-34.0); MEAN CORPUSCULAR HGB CONC 34.6 % (32.0-36.0); MEAN PLATELET VOLUME 7.5 FL (7.0-11.0); MONO % 9.2 % (0.0-8.0); MONOCYTE # 0.9 TH/MM3 (0-0.9); PLATELET COUNT 190 TH/MM3 (150-450); RED BLOOD COUNT 5.36 MIL/MM3 (4.50-5.90); RED CELL DISTRIBUTION WIDTH 13.5 % (11.6-17.2); WHITE BLOOD COUNT 9.8 TH/MM3 (4.0-11.0)
[2017-11-18 11:02] VITALS: PULSE 85; RESP 17; O2SAT 99
[2017-11-18 11:16] LABS: ALBUMIN 4.4 GM/DL (3.4-5.0); ALT (GPT) 41 U/L (12-78); AST (GOT) 49 U/L (15-37); BICARBONATE 24.7 MEQ/L (21.0-32.0); BLOOD UREA NITROGEN 16 MG/DL (7-18); CALCIUM 8.7 MG/DL (8.5-10.1); CHLORIDE 103 MEQ/L (98-107); GLOMERULAR FILTRATION RATE 58 ML/MIN (>89); GLUCOSE,RANDOM 79 MG/DL (74-106); SODIUM (NA) 143 MEQ/L (136-145)
[2017-11-18 11:18] LABS: ALKALINE PHOSPHATASE 73 U/L (45-117); TOTAL BILIRUBIN ADULT 1.5 MG/DL (0.2-1.0); TOTAL PROTEIN 8.8 GM/DL (6.4-8.2)
[2017-11-18] MEDS ORDERED: CHLO25CA9 PO (11:47)
== END 2017-11-18 14:35 | disposition home or self-care (01) ==
LOC: NEPD 08:52
DX: F10.229 Alcohol dependence with intoxication, unspecified (principal); Y90.8 Blood alcohol level of 240 mg/100 ml or more; Z79.899 Other long term (current) drug therapy
CPT/HCPCS: 80053; 80307; 81001; 83690; 85025; 96361; 96374; 96375; 99284; J2270; J2405; J7030

== ENCOUNTER 2017-12-17 10:04 | Emergency (ER) | payer OTHER ==
[~2017-12-17] VITALS: Ht 180.3 cm; Wt 100.0 kg
[~2017-12-17 10:04] MED LIST changes: +ESCI20TA PO; -ZOFR4TAB3 SL
[2017-12-17 10:10] VITALS: BP 155/104; PULSE 80; RESP 20; TEMP 98.2; O2SAT 99
[2017-12-17] MEDS ORDERED: DIPHTH/TETANUS/ACEL PERTUSSIS (BOOSTER) 0.5 ML VIAL/PFS IM ONE (10:30)
[2017-12-17] MEDS ORDERED: ceFAZolin 2 GM PREMIX 50 ML IV ONE (10:30)
--- NOTE | 2017-12-17 10:31 | PD ---
HPI Chief Complaint: Bite or Sting Time Seen by Provider: 10:23 Travel History International Travel<30 days: No Contact w/Intl Traveler<30days: No Traveled to known affect area: No History of Present Illness HPI 52-year-old male patient presents to the ER because he was bitten by a dog in the face. The dog apparently is a service dog and has current vaccination. He denies any other issues or injuries. Modifying Factors: None Associated Signs & Symptoms: Dog bite to the face Risk Factors: None PFSH Past Medical History Asthma: No Depression: Yes Heart Rhythm Problems: No Cardiovascular Problems: No High Cholesterol: No Chest Pain: No Congestive Heart Failure: No COPD: No Diminished Hearing: No Genitourinary: Yes (ACUTE RENAL FAILURE) Musculoskeletal: No Neurologic: No Respiratory: No Immunizations Current: Yes Social History Alcohol Use: Yes Tobacco Use: No Substance Use: Yes (ALCOHOL EVERYDAY) Allergies-Medications (Allergen,Severity, Reaction): Coded Allergies: [place] [facility] Dust (Verified Allergy, Unknown, 09/04/17) Reported Meds & Prescriptions Reported Meds & Active Scripts Active Augmentin (Amoxicillin-Clavulanate) 500-125 mg Tab 500 Mg PO Q8H 7 Days Percocet (Oxycodone-Acetaminophen) 5-325 mg Tab 1 Tab PO Q6H PRN Chlordiazepoxide HCl 25 Mg Capsule 25 Mg PO DIRECTED 25mg po bid x 3 days then 25mg po daily x 4 days Omeprazole 20 Mg Tab 20 Mg PO BID Reported Escitalopram (Escitalopram Oxalate) 20 Mg Tab 20 Mg PO DAILY Klonopin (Clonazepam) 0.5 Mg Tab 0.5 Mg PO BID Lisinopril 20 Mg Tab 20 Mg PO DAILY Review of Systems Except as stated in HPI: all other systems reviewed are Neg Physical Exam Narrative GENERAL: Well-developed middle-age male patient currently in mild distress. Awake and oriented 3. SKIN: Focused skin assessment warm/dry. HEAD: He has 4-5 cm lacerations 3 over the nose with intrusion into the left nostril. Normocephalic. EYES: Pupils equal and round. No scleral icterus. No injection or drainage. ENT: Mucosa pink and moist. No erythema or exudates. No uvular edema. No uvular , palatal, or tonsillar deviation. Airway patent. No septal hematoma. There does appear to be some nasal blood especially in the left nostril. NECK: Trachea midline. No JVD. Supple. CARDIOVASCULAR: Regular rate and rhythm. No murmur appreciated. RESPIRATORY: No accessory muscle use. Clear to auscultation. Breath sounds equal bilaterally. GASTROINTESTINAL: Abdomen soft, non-tender, nondistended. Hepatic and splenic margins not palpable. MUSCULOSKELETAL: No obvious deformities. No clubbing. No cyanosis. No edema. NEUROLOGICAL: Awake and alert. No obvious cranial nerve deficits. Motor grossly within normal limits. Normal speech. PSYCHIATRIC: Appropriate mood and affect; insight and judgment normal. Data Data Last Documented VS Vital Signs Date Time Temp Pulse Resp B/P (MAP) Pulse Ox O2 Delivery O2 Flow Rate FiO2 12/17/17 10:25 70 12/17/17 10:10 98.2 20 155/104 (121) [address] Facial Bones W/O Iv Cont (12/17/17 10:23) Basic Metabolic Panel (Bmp) (12/17/17 10:23) Complete Blood Count With Diff (12/17/17 10:23) Iv Access Insert/Monitor (12/17/17 10:23) Ecg Monitoring (12/17/17 10:23) Oximetry (12/17/17 10:23) Oxygen Administration (12/17/17 10:23) Vqog-Rui-Vpzmvk (Booster) Inj (Boostrix (12/17/17 10:30) Bupivacaine Pf 0.5% Inj (Marcaine Pf 0.5 (12/17/17 11:00) Morphine Inj (Morphine Inj) (12/17/17 11:00) Ondansetron Inj (Zofran Inj) (12/17/17 11:00) Cefazolin Inj (Ancef Inj) (12/17/17 11:15) Lidocai-Epi 1%-1:100,000 Inj (Xylocaine- (12/17/17 12:30) Ed Discharge Order (12/17/17 14:14) Ibuprofen (Motrin) (12/17/17 14:15) Labs Laboratory Tests Test 12/17/17 10:40 White Blood Count 5.3 TH/MM3 Red Blood Count 4.97 MIL/MM3 Hemoglobin 15.3 GM/DL Hematocrit 44.7 % Mean Corpuscular Volume 89.9 FL Mean Corpuscular Hemoglobin 30.8 PG Mean Corpuscular Hemoglobin Concent 34.3 % Red Cell Distribution Width 15.0 % Platelet Count 148 TH/MM3 Mean Platelet Volume 8.2 FL Neutrophils (%) (Auto) 64.2 % Lymphocytes (%) (Auto) 16.4 % Monocytes (%) (Auto) 18.0 % Eosinophils (%) (Auto) 0.9 % Basophils (%) (Auto) 0.5 % Neutrophils # (Auto) 3.4 TH/MM3 Lymphocytes # (Auto) 0.9 TH/MM3 Monocytes # (Auto) 0.9 TH/MM3 Eosinophils # (Auto) 0.0 TH/MM3 Basophils # (Auto) 0.0 TH/MM3 CBC Comment DIFF FINAL Differential Comment Blood Urea Nitrogen 23 MG/DL Creatinine 1.35 MG/DL Random Glucose 96 MG/DL Calcium Level 8.9 MG/DL Sodium Level 138 MEQ/L Potassium Level 3.9 MEQ/L Chloride Level 103 MEQ/L Carbon Dioxide Level 26.2 MEQ/L Anion Gap 9 MEQ/L Estimat Glomerular Filtration Rate 55 ML/MIN MDM Medical Decision Making Medical Screen Exam Complete: Yes Emergency Medical Condition: Yes Medical Record Reviewed: Yes Interpretation(s) Laboratory Tests Test 12/17/17 10:40 Platelet Count 148 TH/MM3 (150-450) Monocytes (%) (Auto) 18.0 % (0.0-8.0) Lymphocytes # (Auto) 0.9 TH/MM3 (1.0-4.8) Blood Urea Nitrogen 23 MG/DL (7-18) Creatinine 1.35 MG/DL (0.60-1.30) Estimat Glomerular Filtration Rate 55 ML/MIN (>89) Differential Diagnosis Dog bite to the face/lacerations to the nose Narrative Course Ancef and tetanus shot was given in the ER. CAT scan does reveal signs of small nondisplaced nasal bone fractures. Case was discussed with Dr. Crisostomo who came in to fix the laceration. At this point, my plan would be to release him with wound care instructions and follow-up. Return for any signs of infection or new issues as needed. The plan has been discussed with him he states understanding. Diagnosis Primary Impression: Complex laceration of nose Additional Impression: Dog bite of nose Referrals: Nicole Crisostomo MD 1 week Med/Other Pt SpecificInfo: Prescription(s) given Scripts Ibuprofen (Ibuprofen) 800 Mg Tab 800 MG PO Q8H Y for Pain/Inflammation, #20 TAB 0 Refills Prov: Lashanda Reid MD 12/17/17 Amoxicillin-Clavulanate (Augmentin) 500-125 mg Tab 500 MG PO Q8H for Infection for 7 Days, TAB 0 Refills Prov: Lashanda Reid MD 12/17/17 Oxycodone-Acetaminophen (Percocet) 5-325 mg Tab 1 TAB PO Q6H Y for PAIN, #10 TAB 0 Refills Prov: Lashanda Reid MD 12/17/17 Disposition: 01 DISCHARGE HOME Condition: Stable Lashanda Reid MD Dec 17, 2017 10:31
[2017-12-17 10:56] LABS: AUTOMATED NEUTROPHIL # 3.4 TH/MM3 (1.8-7.7); BASOPHIL % 0.5 % (0.0-2.0); EOSINOPHIL % 0.9 % (0.0-4.0); HEMATOCRIT 44.7 % (39.0-51.0); HEMOGLOBIN 15.3 GM/DL (13.0-17.0); LYMPH % 16.4 % (9.0-44.0); LYMPHOCYTE # 0.9 TH/MM3 (1.0-4.8); MEAN CELL VOLUME 89.9 FL (80.0-100.0); MEAN CORPUSCULAR HEMOGLOBIN 30.8 PG (27.0-34.0); MEAN CORPUSCULAR HGB CONC 34.3 % (32.0-36.0); MEAN PLATELET VOLUME 8.2 FL (7.0-11.0); MONOCYTE # 0.9 TH/MM3 (0-0.9); NEUT % 64.2 % (16.0-70.0); PLATELET COUNT 148 TH/MM3 (150-450); RED BLOOD COUNT 4.97 MIL/MM3 (4.50-5.90); WHITE BLOOD COUNT 5.3 TH/MM3 (4.0-11.0)
[2017-12-17] MEDS ORDERED: BUPIVACAINE HCL PF 0.5% 30 ML VIAL NERV BLOCK ONE (11:00)
[2017-12-17] MEDS ORDERED: ONDANSETRON HCL 4 MG/2 ML VIAL IV PUSH ONE (11:00)
[2017-12-17] MEDS ORDERED: MORPHINE SULFATE 2 MG/ML SYRINGE IV PUSH ONE (11:00)
[2017-12-17 11:14] LABS: BICARBONATE 26.2 MEQ/L (21.0-32.0); CALCIUM 8.9 MG/DL (8.5-10.1); CREATININE 1.35 MG/DL (0.60-1.30)
--- NOTE | 2017-12-17 11:14 | RADRPT ---
EXAM DATE/TIME: 12/17/2017 10:43 [place] COMPARISON: No previous studies available for comparison. INDICATIONS : Trauma, dog bite to face today. RADIATION DOSE: 47.21 CTDIvol (mGy) MEDICAL HISTORY : Renal failure, acute. SURGICAL HISTORY : None. ENCOUNTER: Initial ACUITY: 1 day PAIN SCORE: 7/10 LOCATION: Bilateral nose TECHNIQUE: Volumetric scanning of the facial bones was performed. Using automated exposure control and adjustme nt of the mA and/or kV according to patient size, radiation dose was kept as low as reasonably achiev able to obtain optimal diagnostic quality images. DICOM format image data is available electronicall y for review and comparison. FINDINGS: ORBITS: The orbital and infraorbital osseous structures are intact. The retroconal structures have a normal configuration. No radiopaque foreign bodies are seen. NASAL BONE: There are nondisplaced fractures of the right and left nasal bones adjacent to the area of laceration . ZYGOMATIC ARCHES: Symmetric without evidence of fracture. SINUSES: The maxillary, ethmoid and frontal sinuses are intact. No air-fluid levels seen. NASAL CAVITY: The nasal septum is intact and midline. The lacrimal ducts are intact. SOFT TISSUES: No radiopaque foreign bodies seen. Soft tissue irregularity overlying the anterior and right lateral aspect of the nose. INTRACRANIAL: No intracranial air seen. CRIBIFORM PLATE: Grossly intact. CONCLUSION: Soft tissue lacerations overlying the nose with nondisplaced fractures of the right and left nasal chika ne. Jenna Awan MD on December 17, 2017 at 11:08 Board Certified Radiologist. This report was verified electronically.
[2017-12-17] MEDS ORDERED: CEFAZOLIN INJ 2,000 MG in SODIUM CHLORIDE 0.9% INJ 100 ML IV ONE (11:15)
[2017-12-17] MEDS ORDERED: LIDOCAINE 1%/EPINEPHrine 1:100,000 SOLN 20 ML VIAL INFIL ONE (12:30)
[2017-12-17] MEDS ORDERED: AUGM500T7 PO (12:46)
[2017-12-17] MEDS ORDERED: PERC5TAB12 PO (12:46)
[2017-12-17] MEDS ORDERED: IBUP1TAB7 PO (14:15)
[2017-12-17] MEDS ORDERED: IBUPROFEN 800 MG TAB PO ONE (14:15)
--- NOTE | 2017-12-17 18:09 | MP ---
cc: Nicole Crisostomo MD DATE OF OPERATION: 12/17/2017 DATE OF OPERATION: 12/17/2017 PREOPERATIVE DIAGNOSIS: Three lacerations of the nose. POSTOPERATIVE DIAGNOSIS: Three lacerations of the nose. PROCEDURE PERFORMED: 1. Complex repair of a 6 cm laceration down the central portion of the nose. 2. Complex repair of tissue avulsion laceration 3.5 cm on the right side of the nose. 3. Repair of a 1.5 cm laceration on the superior left portion of the nose. ANESTHESIA: Local. SURGEON: Nicole Crisostomo MD INDICATION FOR PROCEDURE: This is a 52-year-old male who was bit in the face by a dog. FINDINGS: At the completion of the procedure, all the devitalized tissue had been removed and the wounds closed. The operative time was 1 hour and 15 minutes. DESCRIPTION OF PROCEDURE: The patient was seen in the emergency room where the operation was performed. He was in the supine position. The nasal area and the mid face area were prepped with Betadine and draped in the usual sterile fashion. Bupivacaine 0.5% plain was used to make a nerve block surrounding the nose. This was augmented with lidocaine 1% with epinephrine. Once the anesthetic had taken effect, the wounds were copiously irrigated with saline. The edges of the wound were excisionally debrided with a #15 blade and a sharp scissor. The wounds, after copious irrigation, were closed in layers with 5-0 Vicryl and 6-0 nylon to the skin. The internal portion of the left nostril, which had been lacerated through and through, was repaired with 5-0 Vicryl on the inside of his nose and 5-0 Vicryl to the deep sutures as well as 6-0 nylon to the skin. Once all the wounds were closed, the face was cleansed of Betadine and blood and triple antibiotic ointment was applied along with a dry dressing. The patient was given back to the care of the ER staff for disposition and followup next week in my clinic. MD SEAN Berrios/TERRELL , 04:51 PM , 06:08 PM
--- NOTE | 2017-12-17 18:16 | MB ---
cc: Nicole Crisostomo MD,Lashanda MILES DATE: 12/17/2017 REQUESTING PHYSICIAN: The patient is being seen at the request of Dr. Lashanda Reid REASON FOR CONSULTATION: Dog bite to the nose. 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 The patient saw the dog and apparently got his face too close to the dog and the dog bit him in his nose. Consultation is requested regarding evaluation and treatment of the injury. PAST MEDICAL HISTORY: The patient is otherwise well. ALLERGIES: None. MEDICATIONS: The patient notes that he does take medication for gastroesophageal reflux disease, as well as hypertension. ALLERGIES: ALLERGIC TO HOUSE DUST. MEDICATIONS: Listed on the chart. REVIEW OF SYSTEMS: Negative except as related to the above problem. SOCIAL HISTORY: The patient consumes alcohol. Denies tobacco use. PHYSICAL EXAMINATION: GENERAL: The patient is lying comfortably on a stretcher. HEENT: His extraocular muscles are intact. His pupils are equal, round and reactive to light. The patient has several lacerations over his nose. One measures 6 cm in length. The second one is 3.5 cm in length with some tissue missing and there is a smaller one to the superior part of the nose on the left side which is 1.5 cm in length. The largest laceration goes down the center of the nose, starting just below his glabella and goes obliquely toward the left side and it does go through the nares. The smaller laceration is on the right side of the nose just to the right of the midline and is 3.5 cm in length and appears to have some tissue missing. NECK: Supple without masses. LUNGS: Clear. HEART: Regular rate and rhythm. IMAGING STUDIES: Review of the x-rays reveals a nondisplaced fracture on the left side of his nasal bones. There is apparently a tip fracture, a small fragment measuring 1-2 mm directly at the tip. IMPRESSION: The patient has open wounds to his nose. PLAN: Repair. The patient understands and accepts the risks and complication of the surgery. MD SAEN Berrios//tarik , 04:48 PM , 06:07 PM
== END 2017-12-17 14:54 | disposition home or self-care (01) ==
LOC: NEPC 10:04
DX: S02.2XXA Fracture of nasal bones, initial encounter for closed fracture (principal); S01.21XA Laceration without foreign body of nose, initial encounter; K21.9 Gastro-esophageal reflux disease without esophagitis; I10 Essential (primary) hypertension; F32.9 Major depressive disorder, single episode, unspecified; N17.9 Acute kidney failure, unspecified; W54.0XXA Bitten by dog, initial encounter; Z79.899 Other long term (current) drug therapy; Z23 Encounter for immunization
CPT/HCPCS: 13152; 13153; 70486; 80048; 85025; 90471; 90715; 96365; 96375; 99284; J0690; J2270; J2405

== ENCOUNTER 2017-12-24 16:40 | Emergency (ER) | payer OTHER ==
[~2017-12-24] VITALS: Ht 180.3 cm; Wt 95.0 kg
[~2017-12-24 16:40] MED LIST changes: +AUGM500T7 PO; +IBUP1TAB7 PO; +PERC5TAB12 PO
[2017-12-24 17:08] VITALS: BP 100/62; PULSE 77; RESP 18; TEMP 98.2; O2SAT 97
[2017-12-24 17:19] LABS: BASOPHIL # 0.1 TH/MM3 (0-0.2); BASOPHIL % 0.6 % (0.0-2.0); EOSINOPHIL # 0.1 TH/MM3 (0-0.4); HEMATOCRIT 38.1 % (39.0-51.0); HEMOGLOBIN 13.2 GM/DL (13.0-17.0); LYMPH % 16.2 % (9.0-44.0); LYMPHOCYTE # 2.2 TH/MM3 (1.0-4.8); MEAN CELL VOLUME 87.6 FL (80.0-100.0); MEAN CORPUSCULAR HEMOGLOBIN 30.3 PG (27.0-34.0); MEAN CORPUSCULAR HGB CONC 34.6 % (32.0-36.0); MEAN PLATELET VOLUME 7.2 FL (7.0-11.0); MONO % 7.2 % (0.0-8.0); PLATELET COUNT 332 TH/MM3 (150-450); RED BLOOD COUNT 4.34 MIL/MM3 (4.50-5.90); RED CELL DISTRIBUTION WIDTH 15.1 % (11.6-17.2); WHITE BLOOD COUNT 13.4 TH/MM3 (4.0-11.0)
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
[2017-12-24 17:51] LABS: PROTHROMBIN TIME - PATIENT 9.9 SEC (9.8-11.6)
[2017-12-24 18:00] VITALS: BP 103/63; PULSE 90; RESP 20; O2SAT 97
[2017-12-24 18:02] LABS: BICARBONATE 24.6 MEQ/L (21.0-32.0); CALCIUM 8.3 MG/DL (8.5-10.1); CREATININE 2.33 MG/DL (0.60-1.30)
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
[2017-12-24] MEDS ORDERED: SODIUM CHLOR 0.9% 1000 ML INJ 1,000 ML IV SCH (18:14)
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
[2017-12-24 19:15] VITALS: BP 103/65; PULSE 89; RESP 18; O2SAT 96
[2017-12-25 00:05] VITALS: BP 122/77; PULSE 89; RESP 16; O2SAT 98
[2017-12-25 05:56] VITALS: BP 115/75; PULSE 89; RESP 18; O2SAT 99
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
[2017-12-25 07:14] VITALS: BP 129/85
== END 2017-12-25 07:29 | disposition home or self-care (01) ==
LOC: NEPD 16:40
DX: N17.9 Acute kidney failure, unspecified (principal); F10.229 Alcohol dependence with intoxication, unspecified; S00.91XA Abrasion of unspecified part of head, initial encounter; T14.8XXA Other injury of unspecified body region, initial encounter; I10 Essential (primary) hypertension; Y09 Assault by unspecified means; Y92.89 Other specified places as the place of occurrence of the external cause; Y90.8 Blood alcohol level of 240 mg/100 ml or more; Z79.899 Other long term (current) drug therapy
CPT/HCPCS: 70450; 70486; 71045; 72125; 72170; 72220; 73030; 80048; 80307; 85025; 85610; 85730; 96360; 99285; J7030